=== PATIENT | male | born 1945 | race Caucasian/White ===

== ENCOUNTER 2017-08-26 09:27 | Emergency (ER) | payer MEDICARE, OTHER, SELFPAY ==
[2017-08-26 09:30] VITALS: BP 151/85; PULSE 56; RESP 20; TEMP 36.8; O2SAT 97
--- NOTE | 2017-08-26 10:11 | ED_ITS ---
HPI - Abdominal Pain General Chief Complaint: Abdominal Pain Stated Complaint: lower left back /side pain/stomach Time Seen by Provider: 08/26/17 09:34 Source: patient Mode of arrival: ambulatory Limitations: no limitations History of Present Illness HPI narrative: 72-year-old male with a history of hyperlipidemia, hypertension, and kidney stones presents with left lower abdominal pain that started at 530 this morning and has worsened. It is now radiating to the left side of his back. It feels different than previous kidney stones he has had. Denies fevers or chills. He has not had constipation or diarrhea. He is noted to have diverticulosis on recent colonoscopy. No history of diverticulitis. He has had some nausea with this. He took a Vicodin at home which has helped with his pain. Related Data Home Medications Medication Instructions Recorded Confirmed Beeno 1 cap PO PRN PRN 08/26/17 08/26/17 Mylanta 1 dose PO PRN PRN 08/26/17 08/26/17 aspirin 81 mg PO QPM 08/26/17 08/26/17 atorvastatin 20 mg PO QPM 08/26/17 08/26/17 atorvastatin [Lipitor] 20 mg PO QPM 08/26/17 08/26/17 clobetasol 1 applic TOPICAL DIRECTED 08/26/17 08/26/17 diclofenac sodium 1 applic TOPICAL DIRECTED 08/26/17 08/26/17 econazole 1 applic TOPICAL DIRECTED 08/26/17 08/26/17 fluticasone 1 spray INTRANASAL DIRECTED 08/26/17 08/26/17 hydrocodone-acetaminophen 1 tab PO PRN PRN 08/26/17 08/26/17 metoprolol succinate [Toprol XL] 25 mg PO DAILY 08/26/17 08/26/17 pantoprazole 40 mg PO BID 08/26/17 08/26/17 tamsulosin 0.4 mg PO QPM 08/26/17 08/26/17 telmisartan [Micardis] 20 mg PO QPM 08/26/17 08/26/17 terbinafine HCl 250 mg PO DAILY 08/26/17 08/26/17 Previous Rx's Medication Instructions Recorded hydrocodone-acetaminophen [[place]] 1 tab PO Q4H PRN #14 tab 08/26/17 ondansetron [Zofran ODT] 4 mg PO Q6H PRN #20 tab 08/26/17 Allergies Allergy/AdvReac Type Severity Reaction Status Date / Time No Known Drug Allergies Allergy Verified 08/26/17 10:00 Review of Systems Review of Systems All systems reviewed & are unremarkable except as noted in HPI and below PFSH Social History Smoking Status: Former smoker Exam Initial Vital Signs Initial Vital Signs: Vital Signs Temperature 98.3 F 08/26/17 09:30 Pulse Rate 56 L 08/26/17 09:30 Respiratory Rate 20 08/26/17 09:30 Blood Pressure 151/85 H 08/26/17 09:30 Pulse Oximetry 97 08/26/17 09:30 Const General: cooperative and well developed Nutritional Appearance: well nourished Orientation: alert, awake, oriented x3 and not confused HENMT Head: normocephalic and atraumatic Ears: external ears normal and TM's normal bilaterally Nose: external nose normal and No nasal discharge Face and sinus: sinuses nontender, face symmetric, no sinus tenderness and No dry mucous membranes Mouth: oral mucosae normal and moist mucous membranes Teeth and gingiva: dentition normal Throat: tonsils normal and uvula midline Eyes General: appearance normal, both eyes and all related structures Eyelids: eyelids normal Conjunctivae: conjunctivae normal Sclera: sclerae normal Pupils: PERRL EOM: EOM intact bilaterally Neck Neck: normal visual inspection, trachea midline, No lymphadenopathy, No midline deformity and No JVD Lymphatic: No lymphedema Chest Chest: normal inspection of the chest Resp Effort & Inspection: normal respiratory effort, able to speak in complete sentences, no respiratory distress and no use of accessory muscles Auscultation: clear to auscultation bilaterally, no rales, no rhonchi and no wheezes Cardio Rate: regular rate Rhythm: regular rhythm Heart Sounds: no click, no gallops, no murmurs and no rubs Pulses: normal peripheral pulses GI Inspection: non-distended Palpation: soft, no hepatosplenomegaly, No guarding, No pulsatile mass and tender (Left lower quadrant) Auscultation: normal bowel sounds Back/Spine/Pelvis Back: No CVA tenderness Cervical Spine: cervical ROM normal and No pain with cervical ROM Thoracic/Lumbar Spine: thoracic and lumbar spine normal to inspection Skin General: no rashes or lesions noted, No jaundice and No petechiae Neuro General: alert, oriented x3, gait normal and no focal motor deficits Cranial Nerves: CN's II-XI intact bilaterally Speech: speech normal Motor: strength 5/5 throughout Sensory Exam: no sensory deficits noted Extrem General: full ROM, no clubbing, cyanosis or edema, no pedal edema and no calf tenderness Psych Appearance: well kempt Mental Status: mental status grossly normal Attitude: cooperative Thought Content: normal and suicidality Judgment: judgment good Course Orders Ordered: ED Orders 08/26/17 09:57 Urine Microscopic Stat 08/26/17 10:59 Urinalysis and Microscopic Stat 08/26/17 11:00 CT abdomen pelvis w con Stat 08/26/17 11:25 Complete Blood Count AUTO DIFF Stat Comprehensive Metabolic Panel Stat Lipase Stat Sodium Chloride (Normal Saline 0.9%) 1,000 mls @ 150 mls/hr IV CONT LORA Last Admin: 08/26/17 11:35 Dose: 150 mls/hr Discontinued Medications Ketorolac Tromethamine (Toradol) 30 mg IV NOW ONE Stop: 08/26/17 11:00 Last Admin: 08/26/17 11:38 Dose: 30 mg Ondansetron HCl (Zofran) 4 mg IV NOW ONE Stop: 08/26/17 11:00 Last Admin: 08/26/17 11:41 Dose: 4 mg Vital Signs - 8 hr 08/26/17 09:30 08/26/17 13:07 Temperature 98.3 F Pulse Rate 56 L 50 L Respiratory Rate 20 17 Blood Pressure 151/85 H Blood Pressure [Left Arm] 145/75 H Pulse Oximetry 97 94 MDM - Abdominal Pain Differential Diagnosis Differential diagnosis: Likely abdominal pain, acute appendicitis, calculus of kidney, constipation, diverticulitis and small bowel obstruction Medical Records Attestation: I reviewed the patient's medical records. Lab Data Attestation: I reviewed the patient's lab results. Result diagrams: 08/26/17 11:25 08/26/17 11:25 Lab Results 08/26/17 08/26/17 08/26/17 Range/Units 09:57 11:25 11:25 WBC 9.6 (4.5-11.0) X10^3/uL RBC 4.49 L (4.5-5.9) X10^6/uL Hgb 14.4 (13.5-17.5) g/dL Hct 41.5 (41-53) % MCV 92.5 (80-100) fL MCH 32.0 (26-34) PG MCHC 34.6 (30-36) % RDW 13.6 (11.6-14.8) % Plt Count 152 (150-400) X10^3/uL Neut % (Auto) 79.6 H (50-75) % Lymph % (Auto) 13.2 L (25-40) % [place] % (Auto) 6.5 (3-14) % Eos % (Auto) 0.2 L (2-4) % Baso % (Auto) 0.5 (0-2) % Neut # (Auto) 7700 H (3628-7240) /uL Sodium 144 (137-145) mmol/L Potassium 4.4 (3.4-5.1) mmol/L Chloride 105.0 (98-107) mmol/L Carbon Dioxide 25.0 (22-32) mmol/L BUN 14.0 (9-20) mg/dL Creatinine 1.00 (0.66-1.25) mg/dL Estimated GFR > 60.0 (>60) mL/min BUN/Creatinine Ratio 14.0 (6-22) Glucose 106 (80-110) mg/dL Calcium 9.2 (8.4-10.2) mg/dL Total Bilirubin 0.6 (0.2-1.3) mg/dL AST 29 (17-59) IU/L ALT 45 (21-72) IU/L Alkaline Phosphatase 85 (38-126) U/L Total Protein 7.3 (6.3-8.2) g/dL Albumin 4.3 (3.5-5.0) g/dL Globulin 3.0 (1.7-4.1) g/dL Albumin/Globulin Ratio 1.4 (1.0-2.8) Lipase 70 (23-300) U/L Urine RBC 30-100/hpf H (0-5/HPF) Ur Culture Indicated? Cult not indicated Micro UA Comment Not Reportable Imaging Data CT scan - abdomen: Radiologist's impression: PROCEDURE: CT ABDOMEN PELVIS W CON INDICATIONS: Left flank pain, nausea TECHNIQUE: After the administration of intravenous contrast, 5 mm thick sections acquired from the diaphragm to the symphysis. 5 mm coronal and sagittal reformats were acquired. For radiation dose reduction, the following was used: automated exposure control, adjustment of mA and/or kV according to patient size. COMPARISON: None. FINDINGS: Image quality: Excellent. ABDOMEN: Lung bases: Lung bases are clear. Heart size is normal. Solid organs: Subcentimeter hepatic hypodensities are technically too small characterize although could be small cysts or hemangiomas, for example in the right lobe image 25 series 2, and in the left lobe image 22 series 2. Gallbladder negative. Biliary system is non dilated. Pancreas enhances normally. Spleen is normal in size and enhancement. No adrenal nodules. Mild left hydroureteronephrosis related to 3 mm calculus seen in the proximal left ureter image 55 series 2. There is mild associated left perinephric stranding. No other nephrolithiasis is seen. No bladder calculi identified the bladder is partially collapsed otherwise unremarkable. Prostate is enlarged. Peritoneum and bowel: Bowel loops demonstrate normal wall thickness and caliber. No free fluid or air. Incidental colonic diverticula are seen. The rectum is collapsed and otherwise unremarkable. The appendix is not clearly identified however no suspicious pericecal inflammatory changes Nodes and vessels: No retroperitoneal or mesenteric adenopathy by size criteria. Aorta and inferior vena cava are normal in size. Miscellaneous: Tiny fat containing umbilical hernia. PELVIS: Genitourinary: Bladder wall thickness is normal. Miscellaneous: Tiny bilateral fat-containing inguinal hernias. No adenopathy Bones: No suspicious bony lesions. No vertebral body compression fractures. IMPRESSION: Mildly obstructive 3 mm proximal left ureteral calculus. No other urolithiasis seen. Enlarged prostate. Recommend correlation to PSA. Additional chronic and incidental findings as above. Dictated by: Harsha Lombardi M.D. on 08/26/2017 at 12:16 Approved by: Harsha Lombardi M.D. on 08/26/2017 at 12:24 [facility] Narrative Medical decision making narrative: Patient's CT scan shows a 3 mm left renal calculus and no evidence of infection. His white count is normal. His vitals do not show signs of sepsis, and his urinalysis shows no pyuria. He is already taking Flomax. Advise increase fluid, hydrocodone for severe pain, ibuprofen for baseline pain, and Zofran as needed for nausea. Follow up with primary care provider Discharge Plan Departure Patient Disposition: Home, Self-Care Clinical Impression: Renal colic, Ureterolithiasis, Hematuria Instructions: DI for Kidney Stones Activity Restrictions/Additional Instructions: Thank you for trusting others with your care today. A 3 mm kidney stone was seen as the cause of your pain today. Please take the hydrocodone as needed for severe pain, ibuprofen as needed for baseline pain, and Zofran as needed for nausea. Continue Flomax to help the kidney stone pass. Follow up with her primary care provider within 1 week for re-evaluation. Return to the ER for new or worsening symptoms such as fevers, chills, or painful urination. Strain your urine to know when the stone has passed. Prescriptions: New hydrocodone-acetaminophen [[place]] 5-325 mg tablet 1 tab PO Q4H PRN (Reason: pain) Qty: 14 RF: 0 ondansetron [Zofran ODT] 4 mg tablet,disintegrating 4 mg PO Q6H PRN (Reason: nausea and vomiting) Qty: 20 RF: 0 No Action atorvastatin [Lipitor] 20 mg tablet 20 mg PO QPM RF: 0 atorvastatin 20 mg tablet 20 mg PO QPM RF: 0 terbinafine HCl 250 mg tablet 250 mg PO DAILY RF: 0 tamsulosin 0.4 mg capsule,extended release 24hr 0.4 mg PO QPM RF: 0 econazole 1 % cream 1 applic Topical DIRECTED RF: 0 pantoprazole 40 mg tablet,delayed release (DR/EC) 40 mg PO BID RF: 0 telmisartan [Micardis] 20 mg tablet 20 mg PO QPM RF: 0 metoprolol succinate [Toprol XL] 25 mg tablet extended release 24 hr 25 mg PO DAILY RF: 0 clobetasol 0.05 % ointment 1 applic Topical DIRECTED RF: 0 fluticasone 50 mcg/actuation spray,suspension 1 spray Intranasal DIRECTED RF: 0 diclofenac sodium 1 % gel 1 applic Topical DIRECTED RF: 0 hydrocodone-acetaminophen 5-325 mg tablet 1 tab PO PRN PRN (Reason: Pain, Moderate) RF: 0 aspirin 81 mg Tablet,Delayed Release (Dr/Ec) 81 mg PO QPM RF: 0 Beeno 1 cap PO PRN PRN (Reason: UNKNOWN) RF: 0 Mylanta 1 dose PO PRN PRN (Reason: Indigestion) RF: 0 Referrals: Donavon Knowles MD [Primary Care Provider] -
[2017-08-26 10:23] LABS: Culture Indicated Urine Cult Not Indicated; RBC Urine 30-100/HPF (0-5/HPF)
--- NOTE | 2017-08-26 11:00 | DI.CT.S_ITS ---
PROCEDURE: CT ABDOMEN PELVIS W CON INDICATIONS: Left flank pain, nausea TECHNIQUE: After the administration of intravenous contrast, 5 mm thick sections acquired from the diaphragm to the symphysis. 5 mm coronal and sagittal reformats were acquired. For radiation dose reduction, the following was used: automated exposure control, adjustment of mA and/or kV according to patient size. COMPARISON: None. FINDINGS: Image quality: Excellent. ABDOMEN: Lung bases: Lung bases are clear. Heart size is normal. Solid organs: Subcentimeter hepatic hypodensities are technically too small characterize although could be small cysts or hemangiomas, for example in the right lobe image 25 series 2, and in the left lobe image 22 series 2. Gallbladder negative. Biliary system is non dilated. Pancreas enhances normally. Spleen is normal in size and enhancement. No adrenal nodules. Mild left hydroureteronephrosis related to 3 mm calculus seen in the proximal left ureter image 55 series 2. There is mild associated left perinephric stranding. No other nephrolithiasis is seen. No bladder calculi identified the bladder is partially collapsed otherwise unremarkable. Prostate is enlarged. Peritoneum and bowel: Bowel loops demonstrate normal wall thickness and caliber. No free fluid or air. Incidental colonic diverticula are seen. The rectum is collapsed and otherwise unremarkable. The appendix is not clearly identified however no suspicious pericecal inflammatory changes Nodes and vessels: No retroperitoneal or mesenteric adenopathy by size criteria. Aorta and inferior vena cava are normal in size. Miscellaneous: Tiny fat containing umbilical hernia. PELVIS: Genitourinary: Bladder wall thickness is normal. Miscellaneous: Tiny bilateral fat-containing inguinal hernias. No adenopathy Bones: No suspicious bony lesions. No vertebral body compression fractures. IMPRESSION: Mildly obstructive 3 mm proximal left ureteral calculus. No other urolithiasis seen. Enlarged prostate. Recommend correlation to PSA. Additional chronic and incidental findings as above. Dictated by: Harsha Lombardi M.D. on 08/26/2017 at 12:16 Approved by: Harsha Lombardi M.D. on 08/26/2017 at 12:24
[2017-08-26] MEDS: SODIUM CHLORIDE 0.9% 1,000 ML 150 ML IV (11:35)
[2017-08-26 11:36] LABS: Add Manual Diff / Slide Review NO; Basophils Percent Auto 0.5 % (0-2); Eosinophils Percent Auto 0.2 % (2-4); Hematocrit 41.5 % (41-53); Hemoglobin 14.4 g/dL (13.5-17.5); Lymphocytes Percent Auto 13.2 % (25-40); Mean Corpuscular HGB Conc 34.6 % (30-36); Mean Corpuscular Volume 92.5 fL (80-100); Monocytes Percent Auto 6.5 % (3-14); Neutrophils Absolute Auto 7700 /uL (3000-5900); Neutrophils Percent Auto 79.6 % (50-75); Platelet Count 152 X10^3/uL (150-400); Red Blood Cell Count 4.49 X10^6/uL (4.5-5.9); Red Cell Distribution Width 13.6 % (11.6-14.8); White Blood Cell Count 9.6 X10^3/uL (4.5-11.0)
[2017-08-26] MEDS: KETOROLAC 60 MG/2 ML VIAL 30 MG IV (11:38)
[2017-08-26] MEDS: ONDANSETRON 4 MG/2 ML INJ IV (11:41)
[2017-08-26 11:48] LABS: Alanine Aminotransferase 45 IU/L (21-72); Albumin 4.3 g/dL (3.5-5.0); Albumin Globulin Ratio 1.4 (1.0-2.8); Alkaline Phosphatase 85 U/L (38-126); Aspartate Aminotransferase 29 IU/L (17-59); Bilirubin Total 0.6 mg/dL (0.2-1.3); Calcium 9.2 mg/dL (8.4-10.2); Estimated Glomerular Filt Rate > 60.0 mL/min (>60); Glucose 106 mg/dL (80-110); HEMOLYSIS < 15 (0-50); Lipase 70 U/L (23-300); Potassium 4.4 mmol/L (3.4-5.1); Sodium 144 mmol/L (137-145); Total Protein 7.3 g/dL (6.3-8.2)
[2017-08-26 13:07] VITALS: BP 145/75; PULSE 50; RESP 17; O2SAT 94
[2017-08-26 13:55] VITALS: BP 135/74; PULSE 60; RESP 16; O2SAT 99
[2017-08-26 13:56] VITALS: BP 135/74; PULSE 45; RESP 18; O2SAT 96
== END 2017-08-26 13:55 | disposition home or self-care (01) ==
PROVIDERS: Emergency Provider Emergency Medicine
DX: N23 Unspecified renal colic (principal); N20.0 Calculus of kidney; R31.9 Hematuria, unspecified
CPT/HCPCS: 36591; 74177; 80053; 81003; 81015; 83690; 85025; 96361; 96374; 96375; 99283; 99284; J1885; J2405; Q9967

== ENCOUNTER → 2018-01-21 14:46 | Outpatient (CLI) | payer MEDICARE, OTHER, SELFPAY ==
--- NOTE | 2018-01-21 14:56 | DI.MRI.S_ITS ---
PROCEDURE: MR SHOULDER LT WO CON INDICATIONS: CHRONIC LEFT SHOULDER PAIN TECHNIQUE: Noncontrast oblique coronal T2 fast spin echo with fat saturation, oblique sagittal T1 spin echo and T2 fast spin echo with fat saturation, axial T1 spin echo and T2 fast spin echo with fat saturation through the shoulder. COMPARISON: [facility] Outside Film, CR, XR SHOULDER 2+ VIEWS LEFT, 01/04/2018, 15:21. [facility] Outside Film, CR, XR SHOULDER 2+ VIEWS LEFT, 01/04/2018, 16:08. FINDINGS: Image quality: Quality limited by large body habitus to the degree that the shoulder coil for high resolution imaging could not be utilized. Body coil was utilized instead. Rotator cuff: The supraspinatus appears mildly edematous laterally, but not disrupted. In contrast, the subscapularis portion of the rotator cuff appears ruptured, and retracted, with the interspace of disruption measuring up to 2.5 cm in maximal transverse dimension. The subscapularis muscle is retracted mildly medially resulting in this gap. Dorsally the infraspinatus does not appear ruptured but there is focal strain with edema involving the lateral border of the tendon at its humeral insertion where partial tear likely is present due to the previously documented mechanism of injury (anterior subcoracoid left humeral head dislocation). Sagittal images demonstrate no muscle atrophy. Bones and bursae: No bone marrow contusions or fractures are seen involving the scapula but there is focal edema at the upper posterior margin of the humeral head there is impaction against the undersurface of the glenoid rim (a small Hill-Sachs deformity appears present at that site). There is mild to moderate acromioclavicular and glenohumeral joint degeneration. The acromion demonstrates conventional anatomy, without an os acromiale. No pathologic subacromial-subdeltoid or subcoracoid bursal fluid is present. Capsule and soft tissues: In the absence of intra-articular contrast, the labrum and glenohumeral ligaments appear intact. The long head of the biceps tendon demonstrates normal location and morphology. The rotator interval appears normal, without fibrosis. The coracohumeral ligament is normal in thickness. IMPRESSION: Quality of visualization is significantly limited by large patient body habitus which precluded use of the high-resolution shoulder coil for imaging of this patient. Rather, the large body coil was utilized, but the study is diagnostic for findings of a retracted subscapularis tendon rupture with a retraction of the torn margin of that portion of the rotator cuff right 2.5 cm. Mild edema is likely strain or partial tear involving the far lateral aspect of the supraspinatus tendon and also the infraspinatus tendon laterally. There is a small Hill-Sachs deformity at the superior posterior border of the humeral cortical margin secondary to the prior documented anterior subcoracoid shoulder joint dislocation seen 01/04/18. A Bankart lesion fracture is not associated. Dictated by: Gregory Doss M.D. on 01/23/2018 at 13:59 Approved by: Gregory Doss M.D. on 01/23/2018 at 14:16
== END ==
PROVIDERS: Visit Provider Orthopaedic Surgery
DX: M75.112 Incomplete rotator cuff tear or rupture of left shoulder, not specified as traumatic (principal); M25.512 Pain in left shoulder; M24.812 Other specific joint derangements of left shoulder, not elsewhere classified; G89.29 Other chronic pain
CPT/HCPCS: 73221

== ENCOUNTER 2018-03-13 06:14 | Day surgery (SDC) | payer MEDICARE, OTHER, SELFPAY ==
[2018-03-10 07:14] VITALS: BMI 40.0
[2018-03-13] VITALS (14 sets, daily range): BP systolic 90–122; BP diastolic 38–77; PULSE 71–89; RESP 12–18; TEMP 35.9–36.8; O2SAT 90–95; BMI 40.3
[2018-03-13] MEDS: LACTATED RINGERS 1,000 ML 42 ML IV ×2 (07:00→10:19)
[2018-03-13] MEDS: MIDAZOLAM 2 MG/2 ML VIAL 1 MG IV (07:44)
[2018-03-13] MEDS: fentaNYL 100 MCG/2 ML INJ 50 MCG IV (07:44)
[2018-03-13] MEDS: CEFAZOLIN 2 GM/100 ML FROZ.PIGGY IV (07:55)
--- NOTE | 2018-03-13 07:55 | SUR.PREOP ---
Block start time [0744] . Monitoring initiated and maintained throughout procedure. Oxygen and medications given per anesthesiologist instructions. Patient remained stable throughout procedure, no adverse reactions noted. Block end time [0751]. Pt taken directly into the OR after completion of the block. pt at bedside. pt alert and talking to prior to transport to the OR.
--- NOTE | 2018-03-13 08:02 | PM.PREOP ---
Pre-operative Note Interval Note Pre-op Check: Yes History & Physical Reviewed by Physician Changes: No
--- NOTE | 2018-03-13 08:33 | SUR.OPER ---
Beach chair with Jeanen/Joanie shoulder positioner. Lower body on padded OR bed. Head in foam padded head cradle, secured with straps. Non-operative arm secured <90 degrees abduction. Pillow under knees. Safety belt at thigh. Cloth tape over blanket over lower legs and over chest.
[2018-03-13] MEDS: LIDOCAINE 1% W/EPI INJ 20 ML INJ (08:58)
[2018-03-13] MEDS: SODIUM CHLORIDE IRRIG SOLUTION 3,000 ML, EPINEPHrine 1 MG IRR (08:59)
--- NOTE | 2018-03-13 09:28 | P.OP_ITS ---
Operative Date/Time/Diagnoses Date of procedure: 03/13/18 Time of procedure: 08:00 Pre-op diagnosis: Left shoulder dislocation with rotator cuff tear Post-op diagnosis: same Procedure & Clinicians Procedure: Left shoulder arthroscopic diagnostic scope with extensive debridement of the glenohumeral joint. Open rotator cuff repair. Same procedure as scheduled: Yes Indications: Left shoulder dislocation Surgeon: Abdirahman Mehta Screen Printing Machine Loader Unloader: Estefany Castanon Anesthesia Type: General and Peripheral nerve block Operative Notes Findings: Full-thickness subscapularis tear. Almost complete tear of the proximal biceps. Degenerative changes to the labrum and some early arthritic changes to the glenohumeral joint. Some fraying of the articular surface of the supraspinatus but no sign of any full-thickness tears. No sign of any loose bodies. No sign of any significant Bankart lesion. Closure Type: primary Specimen(s): none sent Implants & Drains: Two lateral anchors. Applied: implant(s) Estimated Blood Loss (mL): 5 Blood products transfused: none Procedure in detail: On date of service, Patient was met in the holding area. The operative site was signed and witnessed by the OR staff. The surgeries once again discussed with the patient and any remaining questions they had were answered fully. Patient was taken back to the operating theater and placed on the operating table in a supine position. Great care was taken to ensure that all bony prominences were properly padded. Patient was then placed into the beach chair position. The head and neck were properly positioned and secured. A timeout was performed verifying patient's name, procedure, and the operative site. The upper extremity was then prepped and draped in the normal sterile fashion. Previously, the bony anatomy and portal sites were marked out as well as injected with Marcaine with epinephrine. An 11 blade was used to make an incision in the posterior aspect of the shoulder. The camera was placed, and a diagnostic shoulder scope was performed. Findings listed above. Next under direct visualization, a anterior portal was made. A shaver was brought in and a debridement of the glenohumeral joint as well as the degenerative changes to the labrum was performed using the shaver. The shaver was used to clean up any other related to his tissue in the glenohumeral joint. Using an 18-gauge needle. As mentioned above, patient had an almost complete rupture of the proximal biceps tendon. The biceps tendon was secured and a tenotomy was performed. It was decided at that point that an open repair of the subscapularis was needed. A 10 blade was then used to extend the incision inferiorly. A deltopectoral approach was performed retracting the deltoid laterally and the pectoralis medially. Next the strap muscles were then retracted medially and the clavicle pectoral fascia was removed. This gave us good visualization of the subscapularis as well as the bicipital groove. The bicipital groove was opened allowing us to pull the tendon out of the shoulder. Next turned attention to the subscapularis repair. 2 horizontal mattress sutures were placed using FiberTape. Each horizontal mattress was tied. One limb from each horizontal mattress suture was placed into an anchor which was then placed in to the lesser tuberosity. This provided a crisscross pattern across the subscapularis providing a lezama repair. We are able to externally rotate the shoulder to 45? without any significant tension across the repair. The wound was copiously irrigated and closed in a layered fashion. Patient was extubated and taken to the PACU in stable condition. Complications: none Condition: stable Disposition: PACU Plan for aftercare: Patient will follow our postoperative protocol for rotator cuff tear involving the subscapularis. No external rotation beyond 30?.
--- NOTE | 2018-03-13 10:36 | SUR.PHASEI ---
sitting up drining coffee, oxygen discontinued.
== END 2018-03-13 11:42 | disposition home or self-care (01) ==
PROVIDERS: PCP Family Medicine; Visit Provider Orthopaedic Surgery
PROC: (CPT 29827; principal; 2018-03-13 07:45)
PROC: (CPT 23410; 2018-03-13 07:45)
DX: S46.812A Strain of other muscles, fascia and tendons at shoulder and upper arm level, left arm, initial encounter (principal); S43.005A Unspecified dislocation of left shoulder joint, initial encounter; M21.822 Other specified acquired deformities of left upper arm; G89.18 Other acute postprocedural pain; W16.112A Fall into natural body of water striking water surface causing other injury, initial encounter; G47.33 Obstructive sleep apnea (adult) (pediatric); E66.01 Morbid (severe) obesity due to excess calories; Z68.41 Body mass index [BMI] 40.0-44.9, adult; I10 Essential (primary) hypertension; E78.5 Hyperlipidemia, unspecified; M19.90 Unspecified osteoarthritis, unspecified site
CPT/HCPCS: 23410; 23405; 29822; 64415; 64450; J0171; J0330; J0690; J2250; J2405; J2704; J3010

== ENCOUNTER → 2018-06-27 13:34 | Outpatient (CLI) | payer OTHER, MEDICARE, SELFPAY ==
--- NOTE | 2018-06-27 | DI.MRI.S_ITS ---
PROCEDURE: MR KNEE RT WO CON INDICATIONS: PAIN IN RIGHT KNEE TECHNIQUE: Noncontrast sagittal PD fast spin echo and T2 fast spin echo with fat saturation, sagittal 3-D FLASH with fat saturation; coronal T1 spin echo and PD fast spin echo with fat saturation, and axial PD fast spin echo with fat saturation through the knee. COMPARISON: [facility], CR, XR KNEE ARTHRITIC SERIES RT, 06/16/2018, 15:38. FINDINGS: Image quality: Excellent. Menisci: The medial extrusion of the medial meniscus. Moderately displaced radial tear of the posterior horn medial meniscus adjacent to the meniscal root ligament insertion site. Amorphous and linear oblique high T2 signal intensity within the medial meniscal body, indicating inferior articular surface extension. Linear oblique high T2 signal intensity traverses the lateral meniscal body and posterior horn. Cruciate ligaments: Mild posterior bowing of the anterior cruciate ligament. Moderate T2 signal elevation within the posterior cruciate ligament substance is present. Medial structures: The medial collateral ligament appears intact. Visualized portions of the pes anserinus tendons appear normal. No abnormal bursal fluid. Lateral structures: The lateral collateral ligament, long and short heads of the biceps femoris tendon appear intact. The popliteus tendon appears normal. Iliotibial band appears normal. Anterior structures: The quadriceps and patellar tendons appear intact. There is mild T2 signal elevation within the distal quadriceps tendon as well as the superior patellar tendon. Patellar alignment is normal. No femoral trochlear dysplasia or ventral trochlear prominence. No edema in the infrapatellar fat pad. Moderate prepatellar subcutaneous edema. Bones and cartilage: No bone marrow contusions or fractures. There is severe tricompartmental periarticular osteophyte formation. Severe diffuse articular cartilage loss overlies the weightbearing aspects of the medial femoral condyle and medial tibial plateau. Mild diffuse articular cartilage loss overlies the weightbearing aspects of the lateral femoral condyle and lateral tibial plateau. Articular cartilage fibrillation overlies the patellar apex and central femoral trochlea. Joint space: There is a small knee joint effusion and a small Leyva's cyst. Normal appearing synovial plicae are incidentally noted. IMPRESSION: 1. Tricompartmental osteoarthritis with associated articular cartilage loss. 2. Medial and lateral meniscal tearing. 3. Partial-thickness tears of the anterior and posterior cruciate ligaments. 4. Quadriceps and patellar tendinopathy. 5. Prepatellar bursitis. Dictated by: Nazario Bush M.D. on 06/27/2018 at 15:06 Approved by: Nazario Bush M.D. on 06/27/2018 at 15:09
== END ==
PROVIDERS: PCP Family Medicine; Visit Provider Orthopaedic Surgery
DX: M25.561 Pain in right knee (principal); S83.281A Other tear of lateral meniscus, current injury, right knee, initial encounter; S83.241A Other tear of medial meniscus, current injury, right knee, initial encounter; S83.511A Sprain of anterior cruciate ligament of right knee, initial encounter; S83.522A Sprain of posterior cruciate ligament of left knee, initial encounter; M17.11 Unilateral primary osteoarthritis, right knee; M70.41 Prepatellar bursitis, right knee; M67.863 Other specified disorders of tendon, right knee
CPT/HCPCS: 73721

== ENCOUNTER → 2018-07-31 11:49 | Outpatient (CLI) | payer MEDICARE, OTHER, SELFPAY ==
[2018-07-31 12:26] LABS: Bacteria Urine None Seen; RBC Urine None Seen (0-5/HPF); WBC Urine None Seen (0-5/HPF)
[2018-07-31 13:10] LABS: Appearance Urine UA CLEAR; Bilirubin Urine UA NEGATIVE (NEGATIVE); Color Urine UA YELLOW; Glucose Urine UA NEGATIVE (Negative); Ketones Urine UA NEGATIVE (NEGATIVE); Leukocyte Esterase Urine UA NEGATIVE (NEGATIVE); Nitrite Urine UA NEGATIVE (Negative); Occult Blood Urine UA NEGATIVE (Negative); Protein Urine UA NEGATIVE (Negative); Specific Gravity Urine UA 1.025 (1.000-1.035); Urobilinogen Urine UA 0.2 E.U./dL (0.2); pH Urine UA 5.5 (4.5-8.0)
[2018-07-31 13:20] LABS: Hematocrit 43.5 % (41-53); Hemoglobin 14.6 g/dL (13.5-17.5); Mean Corpuscular HGB Conc 33.7 % (30-36); Mean Corpuscular Hemoglobin 31.1 PG (26-34); Mean Corpuscular Volume 92.5 fL (80-100); Platelet Count 145 X10^3/uL (150-400); Red Cell Distribution Width 13.4 % (11.6-14.8)
[2018-07-31 13:34] LABS: Hemoglobin A1C% w Est Avg Glu 5.4 % (4.0-6.0)
[2018-07-31 13:37] LABS: Culture Indicated Urine Cult Not Indicated; Urine Comments Microscopic Normal
[2018-07-31 13:51] LABS: Blood Urea Nitrogen 18 mg/dL (9-20); Calcium 9.4 mg/dL (8.4-10.2); Carbon Dioxide 23 mmol/L (22-32); Chloride 104 mmol/L (98-107); Estimated Glomerular Filt Rate > 60.0 mL/min (>60); Glucose 87 mg/dL (80-110); HEMOLYSIS < 15 (0-50); Potassium 4.4 mmol/L (3.4-5.1); Sodium 139 mmol/L (137-145)
== END ==
PROVIDERS: Family Provider Family Medicine; PCP Family Medicine; Visit Provider Orthopaedic Surgery
DX: Z01.818 Encounter for other preprocedural examination (principal); N39.0 Urinary tract infection, site not specified; R73.9 Hyperglycemia, unspecified
CPT/HCPCS: 36415; 80048; 81001; 83036; 85027; 93005

== ENCOUNTER 2018-08-22 06:10 | Inpatient (IN) | payer MEDICARE, OTHER, SELFPAY ==
[2018-08-09 09:40] VITALS: BMI 40.9
[2018-08-22] VITALS (14 sets, daily range): BP systolic 101–121; BP diastolic 43–88; PULSE 63–78; RESP 9–18; TEMP 36.1–36.6; O2SAT 90–95; BMI 40.8
--- NOTE | 2018-08-22 06:00 | DI.RAD.S_ITS ---
PROCEDURE: XR KNEE RT 1TO2V INDICATIONS: POST OPERATIVE TOTAL RIGHT KNEE TECHNIQUE: 2 view(s) of the knee acquired. COMPARISON: None. FINDINGS: Bones: Patient is status post knee joint arthroplasty. Hardware components are in expected positions. Visualized bony structures are intact. Soft tissues: Overlying postoperative changes are noted. IMPRESSION: Expected postoperative appearance Dictated by: Harsha Lombardi M.D. on 08/22/2018 at 13:16 Approved by: Harsha Lombardi M.D. on 08/22/2018 at 13:16
[2018-08-22] MEDS: LACTATED RINGERS 1,000 ML 42 ML IV ×3 (07:05→09:02)
[2018-08-22] MEDS: VANCOMYCIN 1,000 MG/200 ML FROZ.PIGGY 200 MG IV (07:06)
[2018-08-22] MEDS: ACETAMINOPHEN 325 MG TABLET 975 MG PO ×3 (07:08→21:11)
[2018-08-22] MEDS: PREGABALIN 75 MG CAPSULE PO (07:08)
[2018-08-22] MEDS: CELECOXIB 200 MG CAPSULE PO (07:08)
--- NOTE | 2018-08-22 07:38 | PM.PREOP ---
Pre-operative Note Interval Note History & Physical reviewed/Exam performed by Physician: Yes Changes to H&P: No
--- NOTE | 2018-08-22 07:40 | P.OP_ITS ---
Operative Date/Time/Diagnoses Date of procedure: 08/22/18 Time of procedure: 07:56 Pre-op diagnosis: right knee OA Post-op diagnosis: same Procedure & Clinicians Procedure: Right total knee arthroplasty Same procedure as scheduled: Yes Indications: The patient has had progressively worsening right knee pain with radiographic changes consistent with arthritis. Non-operative management has failed and the patient has requested total knee replacement. The risks, benefits and alternatives to surgery were discussed with the patient prior to proceeding. Risks discussed included, but were not limited to, failure to relieve pain, stiffness, infection, nerve damage, deep venous thrombosis, pulmonary embolism, stroke, coma, heart attack, permanent paralysis and , as well as the potential need for eventual revision of the prosthetic. Surgeon: Gloria Arana Turning Machine Operator Helper: Estefany Castanon Anesthesia Type: Spinal Operative Notes Findings: Severe right knee osteoarthritis, good stability and balance Closure Type: primary Specimen(s): none sent Prosthetic devices, grafts, tissues, transplants, or devices: Arana and Nephceasar Yates BCS2 size 9 femur, size 7 tibia, +9 poly, 38 oval patella Applied: drain(s) Estimated Blood Loss (mL): 250 Blood products transfused: none Procedure in detail: The patient was seen in the pre-operative area, where the patient identified the right knee as the operative site and this was marked with my initials. The patient received pre-operative antibiotics, and was taken to the operating room and placed on the operative table in the supine position. After satisfactory anesthesia, a multimedia assistant out was performed. The right leg was encircled with a tourniquet about the proximal thigh, and the leg was prepared from the toes to the tourniquet with ChloroPrep in the usual fashion and draped through sterile drapes. The leg was elevated and exsanguinated with Eschmark bandage and the tourniquet inflated to [250] mmHg pressure. The knee was approached through an approximately 18 cm incision centered over the patella and carried into the knee through a medial parapatellar arthrotomy. Portion of the medial and lateral meniscus was resected. Soft tissue was carefully mobilized around the patella the patella was measured with a caliper. Bone was resected from the patella and the patellar height was reconstituted with up an appropriate sized patellar component. The exposed bone was oval and an oval patella was selected. A cover was then placed on the patella. A small amount of additional medial and lateral meniscus was resected. The visionare guide fit well to the distal femur. It looked like an appropriate distal femoral cut and the cut was made without difficulty. Patient had very dense bone. The rotation was assessed and the appropriate size femoral guide was placed on the distal femur and finishing cuts were made. There was no evidence of notching. The anterior, posterior and chamfer cuts were then made. The posterior osteophytes and soft tissues were then removed. The posterior capsule was injected with part of a mixture of 60 ml 0.25% Marcaine mixed with 20 ml Exparel for post operative pain control. The remainder of this mixture was injected into the capsule and subcutaneous tissues during cement curing. Because of his very dense bone I specifically checked the cuts both anteriorly and posteriorly around the condyle and removed any residual thickened capsular insertions along the cut edge. The tibia was prepared and the visionaire guide fit well to the distal tibia. The rotation was assessed. The patient was placed in extension residual medial and lateral meniscus as well as any residual bone was carefully resected. The knee felt tight overall and ultimately [2 mm] additional tibia was resected. He mostasis was achieved especially posteriorly. Additional local was injected into the posterior capsule. The extension gap was assessed and additional releases for gap balancing were performed as necessary. I very specifically recess released additional medial soft tissues up to the mid lateral line and specifically checked to make sure that there were no residual osteophytes or overhanging hypertrophied tibia. It was checked with the gap calender roll press operator. The femoral component was trial was placed and the notch was finished. The trial component was somewhat tight in the AP plane and I specifically checked both the anterior and the posterior cut. Trial tibial and femoral components were then placed and the knee placed through a range of motion. Range of motion was [0- 130], with good stability throughout the range. It was fairly tight overall even after taking another 2 mm cut. Alignment tiara was used during the additional tibial cut resection. The trials were then removed, and the tibia was finished. The bone was prepared with pulsatile lavage, and dried with a sponge. Cement was applied and the final prosthetics placed. Excess cement was removed during and after cement curing. A brief Betadine soak was performed. After confirming there was no extruded cement posteriorly, the final tibial insert was placed. The knee was copiously irrigated and the tourniquet deflated. Hemostasis was obtained with the [Bovie]. A drain was placed and brought out superolaterally. The capsule was closed with interrupted vicryl suture. The subcutaneous layer was closed with barbed sutures, and the skin with a running 3-0 V-Lock suture and Surgical glue. An Aquacel Ag dressing was applied and the patient was taken to recovery having tolerated the procedure well. Complications: none Condition: stable Disposition: observation Plan for aftercare: The patient will be maintained on a standard total knee replacement protocol with weight bearing as tolerated. The patient will receive aspirin and sequential compression devices for DVT prophylaxis. The patient will be discharged home when safe for the home environment.
[2018-08-22] MEDS: CEFAZOLIN 2 GM/100 ML FROZ.PIGGY IV (07:50)
[2018-08-22] MEDS: CEFAZOLIN VIAL 1 GM in SODIUM CHLORIDE 0.9% 100 ML 200 ML IV (08:00)
--- NOTE | 2018-08-22 08:22 | SUR.OPER ---
Supine on padded OR bed. Pillow under head, arms secured on padded armboards <90 degree abduction. Safety belt across torso. Non-operative leg secured with tape over blanket over lower leg. Operative leg secured in [place]. Foam padded brace at thigh of operative leg.
[2018-08-22] MEDS: BUPIVACAINE LIPOSOME 266 MG/20 ML VIAL INJ (08:36)
[2018-08-22] MEDS: BUPIVACAINE 0.25% W/ EPI 30 ML VIAL 60 ML INJ (08:36)
[2018-08-22] MEDS: POVIDONE-IODINE 15 ML, SODIUM CHLORIDE 0.9% 250 ML TOP (08:37)
[2018-08-22] MEDS: TRANEXAMIC ACID 1,000 MG VIAL 1000 MG INJ ×2 (08:39→10:49)
--- NOTE | 2018-08-22 12:10 | SUR.PHASEI ---
Stable pacu stay, report to marjan pt left with [facility] in stable condition.
[2018-08-22] MEDS: LACTATED RINGERS 1,000 ML 125 ML IV (14:22)
--- NOTE | 2018-08-22 14:45 | PC.NURSE ---
Fredis arrived on unit at 1205 in stable condition. VS remain stable. He denies pain. He is able to move his legs and is eager to start first PT session. He has not yet voided but denies urge to void. His hemovac drain output is scant; hemovac was unclamped per orders at 1300. He has a dime-sized spot of old blood on upper portion of his aquacel drsg. R knee. Fredis is taking his general diet without N/V.
--- NOTE | 2018-08-22 16:09 | PT.IIE ---
Current Diagnoses Unilateral primary osteoarthritis, right knee (08/22/18) Surgery Performed Operation Date: 08/22/18 07:45 Actual Procedures p Total Knee Arthroplasty(Right) - Gloria Arana MD Surgical History (Last Updated 08/11/18 @ 09:40 by Mary Anne Cosby, RN) History of arthroscopy of left shoulder (Acute 03/13/18) History of carpal tunnel release (Acute) Status post lumbar spine surgery for decompression of spinal cord (Acute) Medical History (Last Updated 08/11/18 @ 10:56 by Mary Anne Cosby RN) Arthritis (Acute) Allergic rhinitis (Acute) Ascending aorta dilatation (Acute) Atypical chest pain (Acute) Benign prostatic hyperplasia (Acute) Bradycardia (Acute) Dislocation of left shoulder joint (Acute) GERD (gastroesophageal reflux disease) (Acute) Hill Sachs deformity, left (Acute) Hyperlipidemia (Acute) Hypertension (Acute) Lumbar spinal stenosis (Acute) Morbid obesity (Acute) Shoulder dislocation (Acute) Sleep apnea (Acute) Supraspinatus tendon tear (Acute) Tonsillectomy planned (Acute) Physical Therapy Inpatient Evaluation/Re-Eval M1 PT/OT-IP Prior Functional Status Start: 08/22/18 16:10 Freq: NEEDED Status: Active Protocol: Document 08/22/18 16:09 DLM (Rec: 08/22/18 17:01 DL [id number]) Medical Review Prior Functional Status Medical History Reviewed Yes Diet/Fluid Consistency Regular Communication WNL Mobility and Gait Independent without device Activities of Daily Living and IADL's Independent Social History Household Members spouse Living Arrangements House Number of Floors (Floors) One Floor Number of Stairs To Enter/Railing? 2 without rail Home Equipment Front Wheel Walker Straight Cane [facility] Bed Employment Status Retired M2 PT-IP Current Condition Start: 08/22/18 16:10 Freq: NEEDED Status: Active Protocol: Document 08/22/18 16:09 DLM (Rec: 08/22/18 17:01 DL [id number]) Physical Therapy Current Condition Current Condition Evaluation Date 08/22/18 Treatment Diagnosis right TKA, impaired gait Onset Date 08/21/18 Weight Bearing Status Weight Bearing Status Weight Bear as Tolerated M3 PT-IP Subjective Start: 08/22/18 16:10 Freq: NEEDED Status: Active Protocol: Document 08/22/18 16:09 DLM (Rec: 08/22/18 17:01 [facility] [id number]) Subjective Physical Therapy Visit Type Type Initial Evaluation Visit Start Time 15:15 Visit Stop Time 16:09 Total Visit Minutes 54 Number of CUSHION COVER INSPECTOR Visits 0 Physical Therapy Visit Comments Patient Comments he is eager to go home today if he is able, his verbalizes concern regarding if he is really ready to go home Patient Goals return home Therapy Pain Assessment Pain When Pain Assessed After Treatment Pain Present Pain Present Pain Reported Location right knee Intensity 1 Scale Used Numeric (1 - 10) Description Aching Pain Management Techniques Apply Cold M4 PT-IP Mobility and Gait Start: 08/22/18 16:10 Freq: NEEDED Status: Active Protocol: Document 08/22/18 16:09 DL (Rec: 08/22/18 17:01 [facility] [id number]) PT-Bed Mobility Assessment Supine to Sit Supine to Sit Standby Assistance Sit to Supine Sit to Supine Standby Assistance Scooting Scooting to Edge of Bed Standby Assistance PT-Transfer Assessment Sit to and From Stand Sit to and from Stand Contact Guard Assistance Use of Upper Extremities Equipment Transfer Assistive Device Gait Belt Front Wheeled Walker Transfers Transfer Destination Chair Transfer Technique Stand Step Pivot Transfer Ability Level of Assist Standby Assistance Use of Upper Extremities Comments Mobility Comments Pt describes mild dizziness during mobility especially with head movements. He also describes light-headedness with initial sit-stand that resolves with standing rest. After gait and mobility pt became nauseated and vomitted large amount of fluid, pt clammy and pale while vomiting but reports feeling better after vomitting. Pt unable to urinate this visit. Pt returned to bed to rest after vomitting. Gait Assessment Gait Gait Assistance Required: Standby Assistance Distance (Feet) 60 Able to Maintain Weight Bearing Status Yes During Gait Assistive Devices Assistive Device Gait Belt Front Wheeled Walker Gait Deviations General Gait Pattern Antalgic Decreased Stride Length Factors Limiting Gait Function Factors Limiting Gait Function Decreased Activity Tolerance Decreased Strength Limited Range of Motion PT-Balance Assessment Sitting Balance and Reactions Static Sitting Balance Ability Normal Dynamic Sitting Balance Ability Normal Standing Balance and Reactions Static Standing Balance Ability Good Dynamic Standing Balance Ability Fair Device Used FWW M5 PT-IP Objective Assessments Start: 08/22/18 16:10 Freq: NEEDED Status: Active Protocol: Document 08/22/18 16:09 DL (Rec: 08/22/18 17:01 [facility] [id number]) Orientation Orientation/Cognition Level of Alertness Alert Orientation Name Age Birthday Month Date Year Day of Week Place Situation Language Function Ability No Deficits Noted Safety Awareness Understands Safety Issues Memory Description No Deficits Noted Gross Range of Motion Upper Extremity ROM Assessment Within Functional Limits Lower Extremity ROM Assessment Right Impaired Impairments right knee 10-80 degrees actively Strength Upper Extremity Strength Assessment Within Functional Limits Lower Extremity Strength Assessment Right Impaired Hip able to complete straight leg raise off bed Knee knee ext 3/5 Ankle DF 5/5 Comments Strength Comments hx of left rotator cuff repair Coordination Assessment Gross Coordination Gross Coordination WNL Sensation Assessment Comments Sensation Comments mild numbness in right LE and car-area post surgery Muscle Tone Muscle Tone WNL Yes M6 PT-IP Treatment Start: 08/22/18 16:10 Freq: NEEDED Status: Active Protocol: Document 08/22/18 16:09 DLM (Rec: 08/22/18 17:01 [facility] [id number]) Physical Therapy Treatment Exercises Exercises Ankle Pumps Seated Knee Flexion/Extension Education Education Provided Weight Bearing Status Post-Op Packet Safety M7 PT-IP Assessment and Plan Start: 08/22/18 16:10 Freq: NEEDED Status: Active Protocol: Document 08/22/18 16:09 DLM (Rec: 08/22/18 17:01 [facility] [id number]) PT Summary Assessment and Plan Potential Rehabilitation Potential Excellent Status of Condition at Evaluation Unstable Summary Impairments Pain ROM Strength Balance Bed Mobility Transfers Gait Activity Tolerance Assessment Summary Fredis is alert and eager to get out of bed this visit. He tolerated gait with the fWW but after gait and mobility he became very nauseated and vomited a large amount of fluid. Pt returned to bed to rest. Pt continues to be unable to urinate at this time . Pt has a supportive who plans to assist him at home. Anticipate he will be ready to go home tomorrow. Goals Bed Mobility Goal Independent Transfer Goal Independent Front Wheeled Walker Gait Goal Independent Front Wheel Walker Gait Distance 150 feet Other Goals 2 steps with bilateral UE support and SBA. (pt plans to hold doorframe at home and/or FWW) Days to Meet Goals 2 Frequency of Treatment Frequency Of Treatment Twice a Day Treatment Plan Physical Therapy Treatment Plan Bed Mobility Training Transfer Training Gait Training Therapeutic Exercise Balance Retraining Post Op Education Discharge Planning Hot or Cold Pack Recommendations To Nursing Amount of Assist Needed Standby Assistance Discharge Recommendations PT Discharge Recommendations Home with Assistance Outpatient PT Other Discharge Recommendations has out-pt PT arranged but no first appointment yet
[2018-08-22] MEDS: CEFAZOLIN VIAL 3 GM in SODIUM CHLORIDE 0.9% 100 ML 200 ML IV (16:20)
[2018-08-22] MEDS: ONDANSETRON 4 MG/2 ML INJ IV (16:26)
[2018-08-22] MEDS: PANTOPRAZOLE 40 MG TABLET PO (17:56)
[2018-08-22] MEDS: ONDANSETRON 4 MG ODT PO (17:56)
[2018-08-22] MEDS: TAMSULOSIN 0.4 MG CAPSULE PO (17:56)
--- NOTE | 2018-08-22 19:58 | PC.NURSE ---
Addendum entered by Kayli Smith R.N. 08/22/18 22:58: Patient only voided 25 ml. Vomited again when OOB. Back to bed. Up to attempt void 3rd time, no success. 2 RN's unsuccessful at straight cath, could not insert past prostate level. I notified Dr Tobar of difficult cath/anuria, he said if we can place catheter to leave in overnight. Finally Zina RN able to place 15 fr coude, connected to garcia bag, >600ml clear nemesio urine output immediate. I also notified Dr Tobar of hemovac output of 400 ml sanguinous drainage since 1245 (when brought from PACU), he gave order to clamp drain for 1 hour. Clamp placed at 2255. Pt tolerated cath well, resting in bed visiting with spouse. Denies further nausea/emesis. Original Note: Evening notes: Fredis is oriented x 3, cooperative for the most part, reports little to no knee pain. Denies/refuses any pain medication. He became nauseated & after ambulating in hallway with PT earlier, then got back into bed to eat meal. Ate meal, about 1 hour later had 900 ml emesis. Zofran given. When I reviewed post-op orders I realized that this patient had a Duramorph spinal but in [facility] all the Anesthesiologist's orders were auto DC'd at time of patient transfer to unit. I notified pharmacy who told me to call the Doctor to get orders renewed. I notified Dr Alvarez who said he would enter new spinal orders. Since that time prn orders were entered. Patient denies further nausea. Still no void, patient given his Tamsulosin early tonight per his request. He said I'm sure after I take it I will be able to go. Patient now standing at side of bed attempting to urinate, I assisted him to stand, he denies dizziness. assisting him with urinal as he refused for this nurse to stay in room with him, he said no one is going to look under my skirt. Fall precautions explained to patient & his spouse. He still refused for me to stay in room.
[2018-08-22] MEDS: SODIUM CHLORIDE 0.9% 1,000 ML 100 ML IV (21:12)
[2018-08-22] MEDS: FLUTICASONE 120 SPRAY/16 GM SPRAY.SUSP NASAL (21:13)
[2018-08-22] MEDS: TELMISARTAN 20 MG TABLET 40 MG PO (21:13)
[2018-08-22] MEDS: ASPIRIN EC 81 MG TABLET PO (21:13)
[2018-08-22] MEDS: DOCUSATE 100 MG CAPSULE PO (21:13)
[2018-08-22] MEDS: ATORVASTATIN 20 MG TABLET PO (21:13)
[2018-08-22] MEDS: LORATADINE 10 MG TABLET PO (21:13)
[2018-08-23] VITALS (7 sets, daily range): BP systolic 110–129; BP diastolic 61–73; PULSE 62–79; RESP 12–18; TEMP 36.6–37.4; O2SAT 90–95
[2018-08-23] MEDS: CEFAZOLIN VIAL 3 GM in SODIUM CHLORIDE 0.9% 100 ML 200 ML IV (00:09)
[2018-08-23] MEDS: ONDANSETRON 4 MG/2 ML INJ IV (00:14)
[2018-08-23 05:52] LABS: Hematocrit 36.2 % (41-53); Hemoglobin 12.4 g/dL (13.5-17.5)
--- NOTE | 2018-08-23 07:49 | PM.DS.1 ---
History of Present Illness Date Patient Seen: 08/23/18 Chief complaint: [id number] Total Knee Arthroplasty Narrative: Patient is seen bedside both by myself and by Dr. Arana postop day 1 status post right total knee arthroplasty. Patient was up and ambulating the afternoon to surgery, however he did have urinary retention last night and had to be catheterized. Will do a voiding trial today to ensure he is able to urinate. Patient does have a history of BPH. He normally takes Flomax for this. Denies chest pain shortness of breath calf pain. Pain is well controlled. Discharge Providers Date of admission: 08/22/18 06:10 Discharge Date: 08/23/18 Primary care physician: Maureen Granger DO Consults: 08/22/18 06:00 Consult to Anesthesiology Routine Comment: Consulting Provider: Anesthesiologist Reason for consultation: Regional block for post operative pain control 08/22/18 07:19 Consult to Respiratory Therapy Evaluate & Treat Comment: Physician Instructions: Evaluate and treat 08/22/18 12:06 Consult to Discharge Planning Routine Comment: Consult to Physical Therapy Evaluate & Treat Comment: Physician Instructions: postop TKA protocol Consult to Respiratory Therapy Evaluate & Treat Comment: Physician Instructions: Evaluate and treat Discharge provider: Estefany Castanon PA-C Summary Discharge Diagnosis: 1. Right knee osteoarthritis 2. Morbid obesity 3. Urinary retention Hospital Course: Patient was admitted to the hospital s/p R. total knee arthroplasty on 08/22/[address] Arana. Patient tolerated the procedure well with no major complications. They were transferred to the acute care floor where they were placed on the standard joint replacement pathway and protocol. Patient had urinary retention the night of surgery and had to be catheterized. Patient passed voiding trial the next day. They were seen by physical therapy who recommended that they be discharged home. They were stable and ready for discharge on 08/23/18. Status at Discharge Cognitive/behavioral status at discharge: oriented Functional status at discharge: uses cane/walker Overall status at discharge: patient is progressing back to baseline Time Spent with Patient Less than 30 minutes Exam Vital Signs (past 8 hours): - 08/23/18 00:00 08/23/18 04:45 Temperature 98.2 F 97.8 F Pulse Rate 79 65 Respiratory Rate 12 14 Blood Pressure 116/61 118/72 Pulse Oximetry 90 L 94 Oxygen Delivery Method Room Air Oxygen Flow Rate 0 Narrative Exam Narrative: Well-developed, well-nourished, no acute distress. Alert and oriented to person, place, and time. Dressing on operative knee is clean, dry, and intact with no signs of drainage. Minimal erythema and generalized swelling around the surgical site. Neurovascularly intact in operative extremity with a soft and compressible calf. Range of motion of the operative ankle intact. Objective Labs Result Diagrams: 08/23/18 05:37 Labs: Laboratory Results - last 24 hr 08/23/18 05:37 Hgb 12.4 L Hct 36.2 L Discharge Plan Discharge Plan Patient Disposition: Home Discharge comment: d/c once urinating. Discharge Med Rec/Prescriptions Prescriptions: New acetaminophen 325 mg Tablet 975 mg PO TID Qty: 0 RF: 0 aspirin 81 mg Tablet,Delayed Release (Dr/Ec) 81 mg PO BID Qty: 0 RF: 0 docusate sodium [DOK] 100 mg Capsule 100 mg PO BID Qty: 0 RF: 0 meloxicam [Mobic] 7.5 mg Tablet 15 mg PO 0800 Qty: 0 RF: 0 oxycodone 5 mg Tablet 5 mg PO Q4HR PRN (Reason: pain) Qty: 0 RF: 0 Continued atorvastatin 20 mg tablet 20 mg PO QPM RF: 0 econazole 1 % cream 1 applic Topical DIRECTED PRN (Reason: Antifungal) RF: 0 pantoprazole 40 mg tablet,delayed release (DR/EC) 40 mg PO DAILY RF: 0 telmisartan 20 mg tablet 40 mg PO BEDTIME RF: 0 fluticasone propionate 50 mcg/actuation spray,suspension 1 spray Intranasal DIRECTED RF: 0 diclofenac sodium 1 % gel 1 applic Topical DIRECTED PRN (Reason: Muscle Pain) RF: 0 Beeno 1 cap PO PRN PRN (Reason: UNKNOWN) RF: 0 ondansetron [Zofran ODT] 4 mg tablet,disintegrating 4 mg PO Q6H PRN (Reason: nausea and vomiting) Qty: 20 RF: 0 fexofenadine 180 mg Tablet 180 mg PO BEDTIME RF: 0 cyclobenzaprine 10 mg Tablet 5 mg PO BEDTIME PRN (Reason: muscle spasms) RF: 0 triamcinolone acetonide [Nasacort] 55 mcg Aerosol,[place] 1 spray INTRANASAL BEDTIME RF: 0 metoprolol succinate 25 mg Tablet Extended Release 24 Hr 25 mg PO DAILY RF: 0 loratadine 10 mg Tablet 10 mg PO DAILY RF: 0 ibuprofen 200 mg Capsule 400 mg PO BID PRN (Reason: pain) RF: 0 tamsulosin 0.4 mg Capsule 0.4 mg PO BEDTIME RF: 0 Discontinued aspirin 81 mg Tablet,Delayed Release (Dr/Ec) 81 mg PO QPM RF: 0 Follow up/Referrals: Gloria Arana MD [Physician] - (Follow up in 5-7 days at your previously scheduled post-operative appointment. Please refer to your [facility] book for date and time.) Provider Discharge Instructions Diet: Diet as Tolerated Activity: Weight bearing as tolerated, use walker until cleared by Physical therapy. Cold/Heat Therapy: Apply ice to affected area for 20 minutes at a time at least hourly while awake. Other treatments: Please refer to [facility] book for any other questions and concerns. Skin/Wound/Dressing Care Report to your healthcare provider any signs of infection, such as:: chills, fever, night sweats, increased pain, unusual drainage and unusual redness Dressing: Keep dressing clean, dry, and intact. May shower with it in place but no soaking. Visit Report/Discharge Packet Instructions: DI for Knee Replacement Discharge Data Primary Care Provider: Maureen Granger Attending Provider: Gloria Arana Admit Date/Time: 08/22/18 06:10 Quality VTE Deep Vein Thrombosis/Pulmonary Embolism Present on Admission: No
[2018-08-23] MEDS: TAMSULOSIN 0.4 MG CAPSULE PO ×2 (08:04→21:07)
[2018-08-23] MEDS: PANTOPRAZOLE 40 MG TABLET PO (08:04)
--- NOTE | 2018-08-23 08:46 | CM.DANOTE ---
DCP: Case received, EMR reviewed and met with patient. Introduced self and role. Obtained baseline information from patient. DCP template completed with information currently available. Patient is a 73 year old male who admitted 08/22 to the care of the surgical team. PCP: Dr. Granger. Payer: confirmed: Medicare/[employer]. Patient came to hospital for surgical procedure. Had Total Knee Arthroplasty. Met with patient briefly, for he has discharge order. He is planning on going home, and has outpatient physical therapy set up. Spouse in room at this time. P: Patient will be discharged home today. Has walker for use. Pat Masterson RN/Celebrity Manager
[2018-08-23] MEDS: MELOXICAM 7.5 MG TABLET 15 MG PO (09:09)
[2018-08-23] MEDS: ACETAMINOPHEN 325 MG TABLET 975 MG PO ×3 (09:10→21:05)
[2018-08-23] MEDS: DOCUSATE 100 MG CAPSULE PO ×2 (09:10→21:06)
[2018-08-23] MEDS: ASPIRIN EC 81 MG TABLET PO ×2 (09:10→21:06)
[2018-08-23] MEDS: METOPROLOL ER 25 MG TABLET PO (09:10)
--- NOTE | 2018-08-23 10:26 | PT.IPTN ---
Current Diagnoses Unilateral primary osteoarthritis, right knee (08/22/18) Surgery Performed Operation Date: 08/22/18 07:45 Actual Procedures p Total Knee Arthroplasty(Right) - Gloria Arana MD Physical Therapy Treatment Note M2 PT-IP Current Condition Start: 08/22/18 16:10 Freq: NEEDED Status: Active Protocol: Document 08/22/18 16:09 DLM (Rec: 08/22/18 17:01 DLM [id number]) Physical Therapy Current Condition Current Condition Evaluation Date 08/22/18 Treatment Diagnosis right TKA, impaired gait Onset Date 08/21/18 Weight Bearing Status Weight Bearing Status Weight Bear as Tolerated M3 PT-IP Subjective Start: 08/22/18 16:10 Freq: NEEDED Status: Active Protocol: Document 08/23/18 10:26 DLM (Rec: 08/23/18 11:50 DLM [email or web address]) Subjective Physical Therapy Visit Type Type Treatment Note Visit Start Time 09:45 Visit Stop Time 10:26 Total Visit Minutes 63 Notes started treatment at 8:30- 8: 52 for exercises, breakfast arrived so treatment was stopped and resumed after he ate. Number of BOOK MENDER Visits 0 Physical Therapy Visit Comments Patient Comments He is eager to go home, has not been able to urinate yet, garcia catheter recently removed this AM Patient Goals discharge home Therapy Pain Assessment Pain When Pain Assessed During Mobility Pain Present Pain Present Pain Reported Location right knee Intensity 2 Scale Used Numeric (1 - 10) Description Aching Pain Management Techniques Apply Cold Re-positioning M4 PT-IP Mobility and Gait Start: 08/22/18 16:10 Freq: NEEDED Status: Active Protocol: Document 08/23/18 10:26 DLM (Rec: 08/23/18 11:50 DLM [email or web address]) PT-Bed Mobility Assessment Supine to Sit Supine to Sit Independent Sit to Supine Sit to Supine Independent Scooting Scooting to Edge of Bed Independent PT-Transfer Assessment Sit to and From Stand Sit to and from Stand Standby Assistance Use of Upper Extremities Equipment Transfer Assistive Device Gait Belt Front Wheeled Walker Transfers Transfer Destination Chair Transfer Technique Stand Step Pivot Transfer Ability Level of Assist Standby Assistance Use of Upper Extremities Gait Assessment Gait Gait Assistance Required: Standby Assistance Distance (Feet) 250 Able to Maintain Weight Bearing Status Yes During Gait Assistive Devices Assistive Device Gait Belt Front Wheeled Walker Gait Deviations General Gait Pattern Antalgic Decreased Stride Length Factors Limiting Gait Function Factors Limiting Gait Function Abnormal Tonal Influences Decreased Activity Tolerance Decreased Strength Limited Range of Motion Pain Stair Climbing Assessment Evaluation Level of Assist On Stairs Standby Assistance Devices Stair Climbing Assistive Devices Left Railing Right Railing Technique/Endurance Stair Climbing Direction Ascend and Descend Stair Climbing Technique Step to Step Number of Steps Climbed 3 Query Text: Stair Climbing Set # Repetitions (reps) 1 PT-Balance Assessment Sitting Balance and Reactions Static Sitting Balance Ability Normal Dynamic Sitting Balance Ability Good Standing Balance and Reactions Static Standing Balance Ability Good Dynamic Standing Balance Ability Good Device Used FWW M5 PT-IP Objective Assessments Start: 08/22/18 16:10 Freq: NEEDED Status: Active Protocol: Document 08/23/18 10:26 DLM (Rec: 08/23/18 11:50 DLM [email or web address]) Orientation Orientation/Cognition Level of Alertness Alert Orientation Name Age Birthday Month Date Year Day of Week Place Situation Language Function Ability No Deficits Noted Safety Awareness Understands Safety Issues Memory Description No Deficits Noted M6 PT-IP Treatment Start: 08/22/18 16:10 Freq: NEEDED Status: Active Protocol: Document 08/23/18 10:26 DLM (Rec: 08/23/18 11:50 DLM [email or web address]) Physical Therapy Treatment Exercises Exercises Ankle Pumps Quad Sets Heel Slides Straight Leg Raises Short Arc Quads Passive Knee Extension Hang Seated Knee Flexion/Extension Knee ROM Measurement 0-90 Education Education Provided Weight Bearing Status Post-Op Packet Safety M7 PT-IP Assessment and Plan Start: 08/22/18 16:10 Freq: NEEDED Status: Active Protocol: Document 08/23/18 10:26 DLM (Rec: 08/23/18 11:50 DLM [email or web address]) PT Summary Assessment and Plan Summary Impairments Pain ROM Strength Balance Bed Mobility Transfers Gait Activity Tolerance Progress Towards Goals Progressing Toward Goals Safe For Discharge Assessment Summary Fredis tolerated mobility and gait without dizziness today. He ambulated in the [place] with FWW with safe gait pattern. He tolerated stairs well. His is present for therapy and able to assist him as needed. Pt left up in recliner at end of visit. Pt appears safe to discharge home with his when medically cleared. Pt still unable to urinate this AM. Goals Bed Mobility Goal Independent Transfer Goal Independent Front Wheeled Walker Gait Goal Independent Front Wheel Walker Gait Distance 150 feet Other Goals 2 steps with bilateral UE support and SBA. (pt plans to hold doorframe at home and/or FWW) Days to Meet Goals 2 Frequency of Treatment Frequency Of Treatment Twice a Day Treatment Plan Physical Therapy Treatment Plan Bed Mobility Training Transfer Training Gait Training Therapeutic Exercise Balance Retraining Post Op Education Discharge Planning Hot or Cold Pack Recommendations To Nursing Amount of Assist Needed Standby Assistance Discharge Recommendations PT Discharge Recommendations Home with Assistance Outpatient PT Other Discharge Recommendations has out-pt PT arranged but no first appointment yet
[2018-08-23] MEDS: LIDOCAINE 2% (UROJET) 5 ML GEL TOP (13:15)
--- NOTE | 2018-08-23 13:46 | PC.NURSE ---
Fredis's hemovac was removed at 10 am because he inadvertently pulled it partway out and it was non-functioning. 2x2 and tegaderm drsg. applied. Fredis pushed fluids and ambulated, then attempted to void many times after his coude garcia was discontinued this AM (per Dr. Arana.) He was unable to void more than 25 mL at at time, and he felt increasing discomfort. Post void bladder scan revealed 532 mL, and his bladder was distended and firm. Garcia cath placed, size 14 Fr, using Lidocaine gel prior to insertion. Insertion of garcia did provide some mild resistance. Initially urine return appeared bloody, Punch color, but is now draining clear yellow with only tinge of pink. Fredis was very anxious re: inability to urinate and the fact he had to have new garcia. His is tearful, extremely anxious and asking multiple repetitive questions. Call placed to Dr. Arana's office to report presence of garcia for discharge (need to urology referral at some point).
--- NOTE | 2018-08-23 14:46 | PC.NURSE ---
Fredis was seen by ERICK Pandya. Vasyl will decide as to need for a urology consult. Fredis is an in-pt. so he will likely stay another night. Vasyl advised reinforcing aquacel with ABD pad and harvinder bandage for the night and changing the aquacel in the AM.
[2018-08-23] MEDS: OXYCODONE IR 5 MG TABLET PO ×2 (15:11→19:50)
--- NOTE | 2018-08-23 15:15 | PT.IPTN ---
Current Diagnoses Unilateral primary osteoarthritis, right knee (08/22/18) Surgery Performed Operation Date: 08/22/18 07:45 Actual Procedures p Total Knee Arthroplasty(Right) - Gloria Arana MD Physical Therapy Treatment Note M2 PT-IP Current Condition Start: 08/22/18 16:10 Freq: NEEDED Status: Active Protocol: Document 08/22/18 16:09 DLM (Rec: 08/22/18 17:01 DLM [id number]) Physical Therapy Current Condition Current Condition Evaluation Date 08/22/18 Treatment Diagnosis right TKA, impaired gait Onset Date 08/21/18 Weight Bearing Status Weight Bearing Status Weight Bear as Tolerated M3 PT-IP Subjective Start: 08/22/18 16:10 Freq: NEEDED Status: Active Protocol: Document 08/23/18 15:15 GGD (Rec: 08/23/18 15:35 GGD [id number]) Subjective Physical Therapy Visit Type Type Treatment Note Visit Start Time 14:50 Visit Stop Time 15:15 Total Visit Minutes 25 Number of INSURANCE VERIFICATION CLERK Visits 1 Physical Therapy Visit Comments Patient Comments Pt states he not sure if going home today. Therapy Pain Assessment Pain When Pain Assessed At Rest Pain Present Pain Present Pain Reported Location right knee Intensity 4 Scale Used Numeric (1 - 10) M4 PT-IP Mobility and Gait Start: 08/22/18 16:10 Freq: NEEDED Status: Active Protocol: Document 08/23/18 15:15 GGD (Rec: 08/23/18 15:35 GGD [id number]) PT-Bed Mobility Assessment Supine to Sit Supine to Sit Independent Scooting Scooting to Edge of Bed Independent PT-Transfer Assessment Sit to and From Stand Sit to and from Stand Standby Assistance Use of Upper Extremities Equipment Transfer Assistive Device Gait Belt Front Wheeled Walker Transfers Transfer Destination Chair Transfer Ability Level of Assist Standby Assistance Use of Upper Extremities Gait Assessment Gait Gait Assistance Required: Standby Assistance Distance (Feet) 250 Able to Maintain Weight Bearing Status Yes During Gait Assistive Devices Assistive Device Gait Belt Front Wheeled Walker Gait Deviations General Gait Pattern Antalgic Decreased Stride Length Factors Limiting Gait Function Factors Limiting Gait Function Decreased Activity Tolerance Decreased Strength Limited Range of Motion Pain M5 PT-IP Objective Assessments Start: 08/22/18 16:10 Freq: NEEDED Status: Active Protocol: Document 08/23/18 10:26 DLM (Rec: 08/23/18 11:50 DLM [email or web address]) Orientation Orientation/Cognition Level of Alertness Alert Orientation Name Age Birthday Month Date Year Day of Week Place Situation Language Function Ability No Deficits Noted Safety Awareness Understands Safety Issues Memory Description No Deficits Noted M6 PT-IP Treatment Start: 08/22/18 16:10 Freq: NEEDED Status: Active Protocol: Document 08/23/18 15:15 GGD (Rec: 08/23/18 15:35 GGD [id number]) Physical Therapy Treatment Exercises Exercises Ankle Pumps Quad Sets Heel Slides Straight Leg Raises Short Arc Quads Passive Knee Extension Hang Seated Knee Flexion/Extension M7 PT-IP Assessment and Plan Start: 08/22/18 16:10 Freq: NEEDED Status: Active Protocol: Document 08/23/18 15:15 GGD (Rec: 08/23/18 15:35 GGD [id number]) PT Summary Assessment and Plan Summary Assessment Summary Pt improving with mobility. He is SBA for mobility. He safe and stable with gait. He has good understanding of postop exercises. Pt safe to D/C home when medically stable. Frequency of Treatment Frequency Of Treatment Twice a Day Treatment Plan Physical Therapy Treatment Plan Bed Mobility Training Transfer Training Gait Training Therapeutic Exercise Balance Retraining Post Op Education Discharge Planning Hot or Cold Pack Recommendations To Nursing Amount of Assist Needed Standby Assistance Discharge Recommendations PT Discharge Recommendations Home with Assistance Outpatient PT
--- NOTE | 2018-08-23 15:21 | CM.DPC ---
DCP Cont: Anthony Ochoa. stated that patient may not be discharged today secondary to not being able to void yet. He may need to have catheter replaced. Stated that if he is not discharged today, should be discharged tomorrow. Niecy, in UR is updated. P: DCP to continue to follow and be available for any resources that patient may need. Pat Masterson RN/Park Attendant
[2018-08-23] MEDS: ATORVASTATIN 20 MG TABLET PO (21:06)
[2018-08-23] MEDS: LORATADINE 10 MG TABLET PO (21:07)
[2018-08-23] MEDS: TELMISARTAN 40 MG TABLET PO (21:08)
[2018-08-23] MEDS: FLUTICASONE 120 SPRAY/16 GM SPRAY.SUSP NASAL (21:08)
[2018-08-24] MEDS: OXYCODONE IR 5 MG TABLET 10 MG PO ×2 (00:39→12:38)
[2018-08-24 05:54] VITALS: BP 118/72; PULSE 70; RESP 16; TEMP 36.9; O2SAT 90
[2018-08-24] MEDS: OXYCODONE IR 5 MG TABLET PO (06:37)
--- NOTE | 2018-08-24 08:28 | PM.DS.1 ---
History of Present Illness Chief complaint: [id number] Total Knee Arthroplasty Narrative: Patient is seen bedside status post right total knee arthroplasty postop day 2. Patient did not go yesterday because he had urinary retention and had to have another catheter placed. Catheterization was traumatic and there is blood in his urine. He denies any pain in this area. He does have some knee pain but it is well controlled on medication. He has done well with physical therapy. He does have a history of prostate issues however, he has not been followed up on and about 5 years. Discharge Providers Date of admission: 08/22/18 06:10 Discharge Date: 08/24/18 Primary care physician: Maureen Granger DO Consults: 08/22/18 06:00 Consult to Anesthesiology Routine Comment: Consulting Provider: Anesthesiologist Reason for consultation: Regional block for post operative pain control 08/22/18 07:19 Consult to Respiratory Therapy Evaluate & Treat Comment: Physician Instructions: Evaluate and treat 08/22/18 12:06 Consult to Discharge Planning Routine Comment: Consult to Physical Therapy Evaluate & Treat Comment: Physician Instructions: postop TKA protocol Consult to Respiratory Therapy Evaluate & Treat Comment: Physician Instructions: Evaluate and treat 08/23/18 17:13 Consult to Urology Routine Comment: Consulting Provider: Jaime Caro Reason for consultation: Hx enlarged prostate, difficulty urinating post op. Hx BPH. Has provider been notified: No Discharge provider: Estefany Castanon PA-C Summary Discharge Diagnosis: Right knee osteoarthritis Morbid obesity Urinary retention Hospital Course: Patient was admitted to the hospital status post right total knee arthroplasty by Dr. Arana on 08/22/2018. Patient tolerated the procedure well with no major complications. They were transferred to the acute care floor where they were placed on the standard joint replacement pathway and protocol. They were seen by physical therapy who recommended that they be discharged home. Patient had significant difficulties voiding the night of surgery and a catheter was placed. The catheter was removed postop day 1 for voiding trial however he was unable to urinate. He was placed back in on postop day 1 with some trauma. Patient will be discharged home with a Garcia catheter and will follow up in 1 weeks time with Urology. They were stable and ready for discharge on 08/24/2018. Exam Vital Signs (past 8 hours): - 08/24/18 05:54 08/24/18 09:00 Temperature 98.4 F 98.4 F Pulse Rate 70 82 Respiratory Rate 16 16 Blood Pressure 118/72 112/73 Pulse Oximetry 90 L 94 Oxygen Delivery Method Room Air Oxygen Flow Rate 0 Narrative Exam Narrative: Well-developed, well-nourished, no acute distress. Alert and oriented to person, place, and time. Dressing on operative knee is clean, dry, and intact with no signs of drainage. Minimal erythema and generalized swelling around the surgical site. Neurovascularly intact in operative extremity with a soft and compressible calf. Range of motion of the operative ankle intact. Catheter is in place and urine is red tinged. Objective Labs Result Diagrams: 08/23/18 05:37 Discharge Plan Discharge Plan Patient Disposition: Home Discharge comment: d/c home with garcia. Will follow up with urology in 1 week. Discharge Med Rec/Prescriptions Prescriptions: New acetaminophen 325 mg Tablet 975 mg PO TID Qty: 0 RF: 0 aspirin 81 mg Tablet,Delayed Release (Dr/Ec) 81 mg PO BID Qty: 0 RF: 0 docusate sodium [DOK] 100 mg Capsule 100 mg PO BID Qty: 0 RF: 0 meloxicam [Mobic] 7.5 mg Tablet 15 mg PO 0800 Qty: 0 RF: 0 oxycodone 5 mg Tablet 5 mg PO Q4HR PRN (Reason: pain) Qty: 0 RF: 0 Continued atorvastatin 20 mg tablet 20 mg PO QPM RF: 0 econazole 1 % cream 1 applic Topical DIRECTED PRN (Reason: Antifungal) RF: 0 pantoprazole 40 mg tablet,delayed release (DR/EC) 40 mg PO DAILY RF: 0 telmisartan 20 mg tablet 40 mg PO BEDTIME RF: 0 fluticasone propionate 50 mcg/actuation spray,suspension 1 spray Intranasal DIRECTED RF: 0 diclofenac sodium 1 % gel 1 applic Topical DIRECTED PRN (Reason: Muscle Pain) RF: 0 Beeno 1 cap PO PRN PRN (Reason: UNKNOWN) RF: 0 ondansetron [Zofran ODT] 4 mg tablet,disintegrating 4 mg PO Q6H PRN (Reason: nausea and vomiting) Qty: 20 RF: 0 fexofenadine 180 mg Tablet 180 mg PO BEDTIME RF: 0 cyclobenzaprine 10 mg Tablet 5 mg PO BEDTIME PRN (Reason: muscle spasms) RF: 0 triamcinolone acetonide [Nasacort] 55 mcg Aerosol,[place] 1 spray INTRANASAL BEDTIME RF: 0 metoprolol succinate 25 mg Tablet Extended Release 24 Hr 25 mg PO DAILY RF: 0 loratadine 10 mg Tablet 10 mg PO DAILY RF: 0 ibuprofen 200 mg Capsule 400 mg PO BID PRN (Reason: pain) RF: 0 tamsulosin 0.4 mg Capsule 0.4 mg PO BEDTIME RF: 0 Discontinued aspirin 81 mg Tablet,Delayed Release (Dr/Ec) 81 mg PO QPM RF: 0 Follow up/Referrals: Gloria Arana MD [Physician] - (Follow up in 5-7 days at your previously scheduled post-operative appointment. Please refer to your [facility] book for date and time.) Provider Discharge Instructions Diet: Diet as Tolerated Activity: Weight bearing as tolerated, use walker until cleared by Physical therapy. Cold/Heat Therapy: Apply ice to affected area for 20 minutes at a time at least hourly while awake. Other treatments: Please refer to [facility] book for any other questions and concerns. Empty garcia if needed. Please call if urine is foul smelling, you run a fever, or if urine is cloudy. Skin/Wound/Dressing Care Report to your healthcare provider any signs of infection, such as:: chills, fever, night sweats, increased pain, unusual drainage and unusual redness Dressing: Keep dressing clean, dry, and intact. May shower with it in place but no soaking. Visit Report/Discharge Packet Instructions: How to Care for Your Garcia Catheter -- Male, DI for Knee Replacement Discharge Data Primary Care Provider: Maureen Granger Attending Provider: Gloria Arana Admit Date/Time: 08/22/18 06:10 Quality VTE Deep Vein Thrombosis/Pulmonary Embolism Present on Admission: No
[2018-08-24] MEDS: PANTOPRAZOLE 40 MG TABLET PO (08:56)
[2018-08-24] MEDS: METOPROLOL ER 25 MG TABLET PO (08:56)
[2018-08-24] MEDS: DOCUSATE 100 MG CAPSULE PO (08:56)
[2018-08-24] MEDS: ACETAMINOPHEN 325 MG TABLET 975 MG PO (08:57)
[2018-08-24] MEDS: ASPIRIN EC 81 MG TABLET PO (08:57)
[2018-08-24] MEDS: MELOXICAM 7.5 MG TABLET 15 MG PO (08:58)
[2018-08-24] MEDS: FLUTICASONE 120 SPRAY/16 GM SPRAY.SUSP NASAL (08:59)
[2018-08-24] MEDS: TAMSULOSIN 0.4 MG CAPSULE PO (08:59)
[2018-08-24 09:00] VITALS: BP 112/73; PULSE 82; RESP 16; TEMP 36.9; O2SAT 94
--- NOTE | 2018-08-24 10:30 | PT.IPTN ---
Current Diagnoses Unilateral primary osteoarthritis, right knee (08/22/18) Benign prostatic hyperplasia without lower urinary tract symptoms (08/22/18) Surgery Performed Operation Date: 08/22/18 07:45 Actual Procedures p Total Knee Arthroplasty(Right) - Gloria Arana MD Physical Therapy Treatment Note M2 PT-IP Current Condition Start: 08/22/18 16:10 Freq: NEEDED Status: Active Protocol: Document 08/22/18 16:09 DLM (Rec: 08/22/18 17:01 DLM [id number]) Physical Therapy Current Condition Current Condition Evaluation Date 08/22/18 Treatment Diagnosis right TKA, impaired gait Onset Date 08/21/18 Weight Bearing Status Weight Bearing Status Weight Bear as Tolerated M3 PT-IP Subjective Start: 08/22/18 16:10 Freq: NEEDED Status: Active Protocol: Document 08/24/18 10:30 GGD (Rec: 08/24/18 11:55 GGD [id number]) Subjective Physical Therapy Visit Type Type Treatment Note Visit Start Time 10:05 Visit Stop Time 10:30 Total Visit Minutes 25 Number of REPAIRER SCREEN CRUSHER Visits 2 Physical Therapy Visit Comments Patient Comments Pt states he having more pain. Therapy Pain Assessment Pain When Pain Assessed At Rest Pain Present Pain Present Pain Reported Location right knee Intensity 7 Scale Used Numeric (1 - 10) Description Sharp With Movement Pain Management Techniques Apply Cold Re-positioning M4 PT-IP Mobility and Gait Start: 08/22/18 16:10 Freq: NEEDED Status: Active Protocol: Document 08/24/18 10:30 GGD (Rec: 08/24/18 11:55 GGD [id number]) PT-Transfer Assessment Sit to and From Stand Sit to and from Stand Standby Assistance Use of Upper Extremities Equipment Transfer Assistive Device Gait Belt Front Wheeled Walker Transfers Transfer Destination Chair Transfer Ability Level of Assist Standby Assistance Use of Upper Extremities Gait Assessment Gait Gait Assistance Required: Standby Assistance Distance (Feet) 50 Able to Maintain Weight Bearing Status Yes During Gait Assistive Devices Assistive Device Gait Belt Front Wheeled Walker Gait Deviations General Gait Pattern Antalgic Decreased Stride Length Factors Limiting Gait Function Factors Limiting Gait Function Decreased Activity Tolerance Decreased Strength Limited Range of Motion Pain M5 PT-IP Objective Assessments Start: 08/22/18 16:10 Freq: NEEDED Status: Active Protocol: Document 08/23/18 10:26 DLM (Rec: 08/23/18 11:50 DLM [id number]) Orientation Orientation/Cognition Level of Alertness Alert Orientation Name Age Birthday Month Date Year Day of Week Place Situation Language Function Ability No Deficits Noted Safety Awareness Understands Safety Issues Memory Description No Deficits Noted M6 PT-IP Treatment Start: 08/22/18 16:10 Freq: NEEDED Status: Active Protocol: Document 08/24/18 10:30 GGD (Rec: 08/24/18 11:55 GGD [id number]) Physical Therapy Treatment Exercises Exercises Ankle Pumps Quad Sets Heel Slides Straight Leg Raises Short Arc Quads Passive Knee Extension Hang Seated Knee Flexion/Extension M7 PT-IP Assessment and Plan Start: 08/22/18 16:10 Freq: NEEDED Status: Active Protocol: Document 08/24/18 10:30 GGD (Rec: 08/24/18 11:55 GGD [id number]) PT Summary Assessment and Plan Summary Assessment Summary Pt had increase in pain with mobility. He had improved tolerance after ROM. He did have increase use of UE support. Frequency of Treatment Frequency Of Treatment Twice a Day Treatment Plan Physical Therapy Treatment Plan Bed Mobility Training Transfer Training Gait Training Therapeutic Exercise Balance Retraining Post Op Education Discharge Planning Hot or Cold Pack Recommendations To Nursing Amount of Assist Needed Standby Assistance Discharge Recommendations PT Discharge Recommendations Home with Assistance Outpatient PT
--- NOTE | 2018-08-24 11:36 | PC.NURSE ---
Aquacel dressing had bloody saturation to lower half noted, visualized by P.A and request to change it and cover with HALINA wrap again. Dressing changed with HALINA bandage overlay, CDI. Patient tolerated well.
--- NOTE | 2018-08-24 14:37 | CM.DPC ---
DCP Cont: Discussed discharge briefly with LEXI Restrepo. She stated that patient would be discharged today with his garcia catheter in, secondary to urinary retention. He will be following up with urology. Ortho will be setting up appt for him. P: Patient will be discharged home today. Pat Masterson RN/Fueler
== END 2018-08-24 13:41 | disposition home or self-care (01) | DRG 470 ==
PROVIDERS: Admitting Provider Orthopaedic Surgery; Family Provider Family Medicine; PCP Family Medicine; Visit Provider Orthopaedic Surgery
PROC: 0SRC0JZ Replacement of Right Knee Joint with Synthetic Substitute, Open Approach (ICD-10-PCS; CPT 27447; principal; 2018-08-22 07:45)
DX: M17.11 Unilateral primary osteoarthritis, right knee (principal); Z68.41 Body mass index [BMI] 40.0-44.9, adult; G47.33 Obstructive sleep apnea (adult) (pediatric); E66.01 Morbid (severe) obesity due to excess calories; I10 Essential (primary) hypertension; E78.5 Hyperlipidemia, unspecified; K21.9 Gastro-esophageal reflux disease without esophagitis; Z87.891 Personal history of nicotine dependence; R33.9 Retention of urine, unspecified; N40.1 Benign prostatic hyperplasia with lower urinary tract symptoms
CPT/HCPCS: 36415; 73560; 85014; 85018; 94762; 97110; 97116; 97163; 97530; C1776; C9290; J0690; J1100; J2250; J2274; J2405; J2704; J3010; J3370

== ENCOUNTER 2023-02-25 13:52 | Day surgery (SDC) | payer MEDICARE, OTHER, SELFPAY ==
[2018-08-22 13:53] VITALS: BMI 40.8
[2023-02-22 12:24] VITALS: BMI 42.7
[2023-02-25 14:29] VITALS: BP 155/91; PULSE 97; RESP 16; TEMP 36.6; O2SAT 95; BMI 42.7
[2023-02-25] MEDS: LACTATED RINGERS 1,000 ML 42 ML IV (14:50)
--- NOTE | 2023-02-25 15:48 | SUR.PREOP ---
EKG ordered for patient due to significant cardiac history. Anesthesia ordered EkG; patient noted to be in aflutter. SILVIA Chong notified of findings. Exam performed and SILVIA Chong deciding to cancel surgical procedure for patient safety and for high-risk outcomes. Patient also states that he has not taken his beta nicky for at least 6 months. No current EKG to records and no current ECHO available. Dr Patel, surgeon, notified of decision.
--- NOTE | 2023-02-25 16:41 | PM.PREOP ---
Pre-operative Note Interval Note History & Physical reviewed/Exam performed by Physician: Yes Changes to H&P: Yes H&P completed within 30 days and has changed as indicated here:: EKG and preop showed a flutter rate control that 89. Anesthesia canceled. Discussed with cardiology Dr. Aden-recommended echo to make sure stable from previous echo and stable aortic aneurysm from previous- if that is okay should be fine to proceed with surgery. Would not start anticoagulation until after surgery. Would not cardiovert until after surgery
--- NOTE | 2023-02-25 17:10 | SUR.PREOP ---
Surgery cancelled due to pre-existing cardiac status; patient discharged home with in stable condition.
== END 2023-02-25 13:55 | disposition home or self-care (01) ==
PROVIDERS: Family Provider Family Medicine; PCP Family Medicine; Referring Provider Orthopaedic Surgery Foot and Ankle Surgery; Visit Provider Orthopaedic Surgery Foot and Ankle Surgery
DX: S82.862A Displaced Maisonneuve's fracture of left leg, initial encounter for closed fracture (principal); Z53.09 Procedure and treatment not carried out because of other contraindication; G47.30 Sleep apnea, unspecified; I10 Essential (primary) hypertension; W10.9XXA Fall (on) (from) unspecified stairs and steps, initial encounter; I49.8 Other specified cardiac arrhythmias
CPT/HCPCS: 27829; 27695; 93005; 93010; J1100; J2405; J2704

== ENCOUNTER → 2023-03-01 08:53 | Outpatient (CLI) | payer MEDICARE, OTHER, SELFPAY ==
[2018-08-22 13:53] VITALS: BMI 40.8
--- NOTE | 2023-03-01 08:56 | DI.ECHO.S_ITS ---
[facility]---------+ [facility] +---------+ : : [address] : : : : [id number] : : : : Phone: [phone]+ Echocardiogram Report + + :Name: EHSAN WASHINGTON Study Date: 03/01/2023 Height: 72 in : :[facility] ReadingLocation: Weight: 283 lb : : Gender: Male BSA: 2.5 m2 : :: 1945 Age: 77 yrs BP: 127/83 mmHg: :Reason For Study: ATRIAL FLUTTER : :Ordering Physician: SRUTHI, : :MELINA Performed By: Rosa Holley : :Referring: MELINA NEGRO : + + Interpretation Summary There is mild concentric left ventricular hypertrophy. The ejection fraction is estimated to be 60-65%. Grade I diastolic dysfunction. The right ventricle is normal in size and function. There is trace aortic regurgitation. Pulmonary artery pressures cannot be estimated because of the lack of a measurable TR jet velocity but the IVC suggests a CVP of around 3 mmHg. The ascending aorta is moderate-severely enlarged, 4.9 cm. Compared to the prior study dated 02/14/2018, no significant change. Procedure: A two-dimensional transthoracic echocardiogram with color flow and Doppler was performed. The study quality was technically difficult. Comparison is made with the echocardiogram of 02/14/2018. A contrast injection of Definity was performed to improve assessment of LV function. The patient was in sinus rhythm with heart rates between 81-93 bpm during the exam. Left Ventricle: The left ventricle is normal in size. There is mild concentric left ventricular hypertrophy. The ejection fraction is estimated to be 60-65%. Diastolic parameters suggest a relaxation abnormality of the left ventricle, consistent with probable normal filling pressures. Right Ventricle: The right ventricle is normal in size and function. Atria: The left atrial size is normal. Right atrial size is normal. There is no Doppler evidence for an interatrial shunt. Mitral Valve: There is a flat closure plane of the the mitral valve leaflets. There is no mitral regurgitation. Aortic Valve: The aortic valve is trileaflet. The aortic valve opens well. There is no aortic valve stenosis. There is trace aortic regurgitation. Tricuspid Valve: The tricuspid valve is normal in structure and function. There is trace tricuspid regurgitation. Pulmonary artery pressures cannot be estimated because of the lack of a measurable TR jet velocity but the IVC suggests a CVP of around 3 mmHg. Pulmonic Valve: The pulmonic valve is not well visualized. Great Vessels: The aortic root is moderately dilated. The ascending aorta is moderate-severely enlarged. The IVC is of normal diameter and collapses greater than 50% with a sniff. This suggests a low right atrial pressure of 3 mm Hg. Pericardium/ Pleura There is no pericardial effusion. There is no pleural effusion. MMode/2D Measurements & Calculations LVIDd: 5.8 cm LVOT diam: 2.5 cm LVIDs: 3.8 cm Ao root diam: 4.6 cm FS: 34.0 % asc Aorta Diam: 4.9 cm IVSd: 1.2 cm LVPWd: 1.1 cm LV martini. diameter/BSA (cm/m^2): 2.3 LV sys. diameter/BSA (cm/m^2): 1.5 LA A2 area: 17.2 cm2 IVC diam: 1.3 cm LA A4 area: 18.4 cm2 LA length (vol): 6.3 cm LA vol: 42.5 ml LA vol index: 17.2 ml/m2 TAPSE: 1.7 cm Doppler Measurements & Calculations Ao V2 max: 134.5 cm/sec LVOT Max Selvin: 103.8 cm/sec Ao V2 mean: 90.5 cm/sec LV V1 max P.3 mmHg Ao max P.2 mmHg LV V1 VTI: 15.1 cm Ao mean P.8 mmHg DESIRAE(I,D): 3.8 cm2 Ao V2 VTI: 18.9 cm DESIRAE(V,D): 3.7 cm2 sev ratio: 0.80 DESIRAE indexed to BSA (cm^2/m^2): 1.5 MV E max selvin: 44.9 cm/sec PA V2 max: 99.5 cm/sec MV A max selvin: 37.2 cm/sec PA V2 mean: 73.9 cm/sec MV E/A: 1.2 PA mean P.4 mmHg Med Peak E' Selvin: 5.5 cm/sec PA pr(Accel): 39.6 mmHg E/E' med: 8.2 Lat Peak E' Selvin: 7.5 cm/sec E/E' lat: 6.0 E/e' average: 7.1 MV dec time: 0.18 sec SV(LVOT): 72.0 ml Reading Physician:11:38 AM
== END ==
PROVIDERS: Family Provider Family Medicine; PCP Family Medicine; Referring Provider Orthopaedic Surgery Foot and Ankle Surgery; Visit Provider Orthopaedic Surgery Foot and Ankle Surgery
DX: I48.92 Unspecified atrial flutter (principal); I77.810 Thoracic aortic ectasia; I77.89 Other specified disorders of arteries and arterioles
CPT/HCPCS: 93306; Q9957

== ENCOUNTER 2023-03-11 08:03 | Day surgery (SDC) | payer MEDICARE, OTHER, SELFPAY ==
[2018-08-22 13:53] VITALS: BMI 40.8
[2023-03-08 14:28] VITALS: BMI 39.4
--- NOTE | 2023-03-11 | DI.RAD.S_ITS ---
PROCEDURE: XR ANKLE LT MIN 3V INDICATIONS: ORIF TECHNIQUE: Multiple intraoperative fluoroscopic views of the ankle were acquired. COMPARISON: None. FINDINGS: Multiple intraoperative fluoroscopic views of the ankle during ORIF, hardware appears intact. IMPRESSION: Intraoperative fluoroscopic views during ORIF of the ankle. Hardware appears intact. Dictated by: Jimmy Gandara M.D. on 03/11/2023 at 15:01 Approved by: Jimmy Gandara M.D. on 03/11/2023 at 15:02
[2023-03-11] MEDS: LACTATED RINGERS 1,000 ML 42 ML IV ×2 (08:26→11:27)
[2023-03-11 08:43] VITALS: BP 139/87; PULSE 92; RESP 20; TEMP 36.2; O2SAT 95; BMI 37.8
--- NOTE | 2023-03-11 10:16 | PM.PREOP ---
Pre-operative Note Interval Note History & Physical reviewed/Exam performed by Physician: Yes Changes to H&P: Yes H&P completed within 30 days and has changed as indicated here:: Patient's surgery was originally scheduled for last week was canceled because he showed a flutter on an EKG in the preoperative area. Discussed with Dr. Aden cardiology. He had an echocardiogram was grossly unchanged from his previous. Recommendation was to proceed with surgery then start anticoagulation and refer to cardiology which may decide to do an elective ablation. When he came in today for his rescheduled surgery he had developed interval hemorrhagic blistering of the lateral border of the foot that was not present at the last time he was seen 02/28/2023. His medial fracture blister has decompressed and healed but he has a new area of threatened skin directly over the medial malleolus again that was not present on his original date of surgery 02/28/2023. We discussed these findings I am still able to make incisions to fix the syndesmosis but I may not be able to do a deltoid repair. Additionally the patient will require separate debridement of his right foot wounds as there do appear to be deep areas of the ulceration. I have added this to the consent and the patient has signed consent for ORIF of the syndesmosis possible deltoid ligament repair and left foot debridement of the wounds as indicated.
[2023-03-11] MEDS: CEFAZOLIN VIAL 3 GM in SODIUM CHLORIDE 0.9% 100 ML IV (10:42)
--- NOTE | 2023-03-11 11:22 | SUR.OPER ---
Supine on padded OR bed, head on pillow, arms secured on padded arm boards at <90 degrees abduction, legs uncrossed, safety belt at waist, tape over blanket over lower right leg, left leg draped free with bump under left hip and left lower leg.
[2023-03-11] MEDS: BUPIVACAINE 0.25% (PF) 30 ML, EPINEPHrine 0.15 MG INJ (11:30)
[2023-03-11 12:25] VITALS: BP 124/81; PULSE 90; RESP 21; TEMP 36.3; O2SAT 90
[2023-03-11 12:30] VITALS: BP 133/93; PULSE 95; RESP 20; O2SAT 92
[2023-03-11 12:35] VITALS: BP 132/81; PULSE 96; RESP 20; O2SAT 92
--- NOTE | 2023-03-11 12:40 | PM.OP.1 ---
Operative Date/Time/Diagnoses Date of procedure: 03/11/23 Time of procedure: 11:30 Pre-op diagnosis: Left closed displaced Maisonneuve fracture s82.862a Left foot skin ulcer hemorrhagic blister full-thickness 6 x 7 cm several other smaller left foot lateral ulcerations Post-op diagnosis: same Procedure & Clinicians Procedure: ORIF syndesmosis ankle CPT code 26177, left Debridement left foot skin ulcerations and wounds multiple largest with dimensions of 6 x 7 cm to others 1 x 1 cm lateral left foot CPT code 98654 modifier 59 separate site Same procedure as scheduled: Yes Indications: Patient is a 77-year-old male that had an injury on February 20 when he fell down stairs and noticed his ankle was out of place and popped it back. He was unable to bear weight after the injury he was seen at an outside hospital and discharged in a knee immobilizer for a proximal fibula fracture. When he presented to [facility] he was found to have the Maisonneuve injury with a large medial hemorrhagic fracture blister. This was decompressed in clinic and He was immobilized in a splint and scheduled for surgery. when he returned for surgery he was found to have a cardiac arrhythmia (atrial flutter) and had his surgery canceled by anesthesia. He was recommended for an echocardiogram cardiology stated if this was unchanged then to proceed with surgery and referred to Cardiology after. Presents today for surgery. In the preoperative area he was noted to have decreased swelling around the ankle hemorrhagic fracture blister at the medial ankle and healed but he had intervally started to develop pressure skin necrosis around the medial malleolus this was not full-thickness but threatened skin. He also had new swelling and hemorrhagic blistering and skin necrosis over the lateral foot presumably from pressure lying with his leg down into the side. These were not present on the date of his previous canceled surgery. There was no obvious infection this appeared to be swelling and pressure related issues but would also require debridement. Therefore the patient's consent for his ankle syndesmotic fixation was amended to include debridement of his left foot wounds. The risks and benefits of the procedure have been discussed with the patient and given the opportunity to ask questions. The risks of surgery include but are not limited to infection, malunion, nonunion, persistence of pain, damage to nerves and blood vessels, posttraumatic arthritis, DVT, PE, cardiopulmonary complications and . The patient expressed a thorough understanding of the risks and benefits of surgery and has elected to proceed. Consent was signed. Surgeon: Charlotte Patel Click Yes if Unassisted: Yes Anesthesia Type: General and Local Operative Notes Findings: Disrupted syndesmosis gross instability this was reduced under direct visualization with open reduction internal fixation and fixed with a hybrid technique using a 4 hole 1/3 tubular plate 3.5 tricortical screw and a syndesmotic suture button device. After fixation of the syndesmosis, the syndesmosis and mortise was stable and there was no significant residual tilt. Due to the skin condition medially was elected to avoid an open medial incision so the deltoid ligament repair was not completed. Attention was then turned to the left foot the wounds were debrided using a curette and scalpel to debride sharply and excise the nonviable epidermis dermis and deep tissue. This does not go below the fascia there were no exposed tendons. Largest wound on the lateral dorsal foot encompassed 6 x 7 cm with 2 smaller 1 x 1 cm lesions. Closure Type: primary Specimen(s): none sent Prosthetic devices, grafts, tissues, transplants, or devices: Arthrex 1/3 tubular plate 1x 3.5 locking screw distally, 1 x 3.5 cortical screw proximal, 1 x3.5mm 50 mm tricortical syndesmotic screw One Arthrex tightrope Xp Estimated Blood Loss (mL): 20 Blood products transfused: none Tourniquet time (min): 30 Procedure in detail: Patient was seen in the preoperative area the site of surgery was marked informed consent confirmed. The patient was brought back to the operating room by the anesthesia team positioned supine on operative table. General anesthetic was administered. Bony prominences were well padded. A well-padded thigh tourniquet was placed. An ipsilateral thigh a bump was placed. Additionally the table was air planed slightly to help with internal rotation of the leg to provide exposure to the fibula. The right lower extremity was prepped and draped in a standard sterile fashion a formal time-out procedure was performed confirming the patient's side and site of surgery and administration of appropriate preoperative antibiotics. Betadine was used as a prep due to the foot wounds. Xeroform was placed around the foot wounds while 1st attention was turned to the left ankle. C-arm was brought in and took x-rays demonstrating the syndesmotic and mortise disruption and lateral subluxation of the talus. Area of the syndesmosis and incisions were marked out on the skin then incision was made along the distal fibula this area was proximal from where his lateral foot ulcerations were covered up with Xeroform. Incision was made through the skin down to the bone. Lateral aspect of the fibula was identified this was then dissected to provide fibular exposure and then anterior for the syndesmosis. With external rotation syndesmosis was grossly unstable the syndesmosis was then debrided and prepared. Using thumb pressure the syndesmosis was reduced and pinned with a K-wire. This was observed under direct visualization of syndesmosis approximation. Clamp was also applied to hold the reduction. Next the 1/3 tubular plate was placed along the fibula. This was secured with a BB Walter proximally. Distally a 3.5 locking screw was placed to avoid prominence in the distal screw and this brought the plate to bone and held nicely. Next the proximal nonlocking 3.5 screw was applied. Then through the central screw holes the syndesmosis was fixed using a standard drill a tetra cortical hole was drilled and a tricortical screw was applied this was a 3.5 screw. Then in the more proximal syndesmotic planned hole this was drilled tetra cortical and a tightrope Xp was applied to catch the medial cortex for 4 cortex fixation and longevity. Once this was completed external rotation was performed to test the fixation and this was stable. Mortise was symmetric. Additionally eversion was attempted. There was slight but not significant tilting. I did not feel that a deltoid repair was necessary at this time and would not be appropriate given the condition of the patient's soft tissues medially. Tourniquet was released and hemostasis was achieved Wound was then irrigated with a dilute Betadine mixture and then rinsed with saline and closed with 3-0 Vicryl 4-0 Monocryl and 3-0 nylon suture. 30 cc of local anesthetic was infiltrated for postoperative pain control. This point attention was turned distally. The Xeroform over the foot was removed. To expose the left foot wounds. Another dilute Betadine prep was completed and a sterile sponge with Betadine was used to scrub the foot wounds and skin. Then a curette and scalpel were used to debride the largest ulceration which measured 6 x 7 cm. Once the nonviable dermis the epidermis were removed there was exposed fascia there was no exposed tendon. This was repeated for the smaller ulcerations. Once this was completed the areas were rinsed and cleaned and a large Xeroform was applied while the wounds covered by 4 x 4 gauze Webril bulky Gracia dressing and a posterior and U splint. The patient was woken from anesthesia and taken to the recovery room in good condition. There no immediate complications from this procedure. All counts were correct. Complications: none Post-operative Condition: stable Disposition: PACU Plan for aftercare: Nonweightbearing or just touchdown for balance on the left lower extremity x6 weeks then will become progressively weight-bearing after that ira. We will follow up in clinic within 2 weeks for a wound check. Given the ulcers on the foot he will get a prescription for an oral antibiotic. He is also indicated to start anticoagulation for his a flutter we will arrange for Eliquis 5 mg b.i.d. to start 24 hours after surgery. Patient also needs to follow up with his hydroelectric machinery mechanic so that they can begin working on a plan for his arrhythmia.
[2023-03-11 12:50] VITALS: BP 130/79; PULSE 98; RESP 19; TEMP 36.2; O2SAT 92
== END 2023-03-11 13:44 | disposition home or self-care (01) ==
PROVIDERS: Family Provider Family Medicine; PCP Family Medicine; Referring Provider Orthopaedic Surgery Foot and Ankle Surgery; Visit Provider Orthopaedic Surgery Foot and Ankle Surgery
PROC: (CPT 27829; principal; 2023-03-11 09:45)
DX: S82.862A Displaced Maisonneuve's fracture of left leg, initial encounter for closed fracture (principal); L97.521 Non-pressure chronic ulcer of other part of left foot limited to breakdown of skin; S90.822S Blister (nonthermal), left foot, sequela; G89.18 Other acute postprocedural pain; W10.9XXA Fall (on) (from) unspecified stairs and steps, initial encounter; I48.92 Unspecified atrial flutter; G47.33 Obstructive sleep apnea (adult) (pediatric); E66.01 Morbid (severe) obesity due to excess calories; I10 Essential (primary) hypertension; K21.9 Gastro-esophageal reflux disease without esophagitis; Z68.38 Body mass index [BMI] 38.0-38.9, adult
CPT/HCPCS: 27829; 11042; 11045; 64450; 73610; 76000; J0171; J0690; J1100; J2250; J2405; J2704; J3010

== ENCOUNTER → 2023-08-25 13:45 | Outpatient (CLI) | payer MEDICARE, OTHER, SELFPAY ==
[2018-08-22 13:53] VITALS: BMI 40.8
--- NOTE | 2023-08-25 | DI.NM.S_ITS ---
PROCEDURE: NM MAYNOR PERF SPECT R&S PHARM Rest and pharmacological stress myocardial perfusion SPECT with gated imaging and ejection fraction RADIOPHARMACEUTICAL: 24.9 mCi Tc-99m tetrafosmin IV at rest and 25.5 mCi Tc-99m tetrafosmin IV at peak effect of pharmacological stress. [id number] was performed. INDICATIONS: Chest pain TECHNIQUE: Radiopharmaceutical was injected at peak stress test, and also at rest. SPECT images were obtained. SPECT myocardial perfusion images were displayed in short axis, horizontal long axis, and vertical long axis views. Gated images were reviewed using [employer] software. COMPARISON: None. CARDIAC STRESS: A pharmacologic stress test was performed under the supervision of an attending staff, using an infusion of regadenoson 0.4 mg IV. Hemodynamic data: There is normal blood pressure and heart rate response to pharmacologic stress. Symptoms: The patient denied anginal chest pain. EKG: No diagnostic changes of ischemia; no ectopy. FINDINGS: Raw data: There is good myocardial uptake of radiotracer. No significant motion artifacts. Tjyp-qa-[id number] ratio is 0.67 (normal is less than 0.38 for tetrafosmin tracer). Left ventricle function: Gated images demonstrate normal left ventricular wall thickening. No segmental wall motion abnormalities. No transient ischemic dilation; TID is 1.24 (normal less than 1.3). Left ventricle resting end diastolic volume is 138 mL. Left ventricle stress ejection fraction is 68%; normal range is above 45%. Myocardial perfusion: There is normal distribution of activity in the right and left ventricular myocardium. No fixed or reversible perfusion defects. IMPRESSION: Low risk study. No evidence of pharmacologic induced ischemia or scar. Dilated LV based on calculated EDV with normal function. Dictated by: Nesha Reynolds D.O. on 08/26/2023 at 16:34 Approved by: Nesha Reynolds D.O. on 08/26/2023 at 16:35
== END ==
PROVIDERS: Family Provider Family Medicine; PCP Family Medicine; Referring Provider Internal Medicine Cardiovascular Disease; Visit Provider Internal Medicine Cardiovascular Disease
DX: R07.9 Chest pain, unspecified (principal)
CPT/HCPCS: 78452; 93017; A9502; J2785

== ENCOUNTER → 2024-12-20 09:22 | Outpatient (CLI) | payer MEDICARE, OTHER, SELFPAY ==
[2018-08-22 13:53] VITALS: BMI 40.8
== END ==
LOC: PHYS 09:24
PROVIDERS: Family Provider Family Medicine; PCP Family Medicine; Referring Provider Family Medicine; Visit Provider Family Medicine
DX: R20.2 Paresthesia of skin (principal)
CPT/HCPCS: 95886; 95909